=== PATIENT | female | born 1995 | race Caucasian/White ===

== ENCOUNTER 2019-06-10 12:11 | Emergency (ER) | payer OTHER ==
[2019-06-10 13:11] VITALS: RESP 18; TEMP 98.1
[2019-06-10] MEDS ORDERED: ONDANSETRON 4 MG/2 ML VIAL IVP STA (13:35)
[2019-06-10] MEDS ORDERED: SODIUM CHLORIDE 0.9% 1,000 ML IV ONE (13:35)
[2019-06-10] MEDS ORDERED: FAMOTIDINE 20 MG/2 ML VIAL IV STA (13:37)
--- NOTE | 2019-06-10 13:40 | ED ---
General Adult HPI - General Chief complaint: Nausea/Vomiting/Diarrhea Stated complaint: vomiting/prg Time Seen by Provider: 06/10/19 13:18 Source: patient, family, RN notes reviewed Mode of arrival: ambulatory Limitations: no limitations - History of Present Illness Initial comments: Patient is a pleasant 24-year-old female presenting to the emergency Department with complaints of nausea vomiting. Patient is approximately 8 weeks gravid. Patient is having nausea and vomiting multiple times per day. Symptoms have been occurring for the past 2-3 weeks. Patient states symptoms are waxing and waning. Sometimes water even makes her gag. Stools have been a little bit looser than normal. Patient is 1 para 0. Patient denies any abdominal discomfort. No pelvic discomfort or vaginal bleeding. Patient does have chronic unchanged headaches. Patient has had one or 2 episodes of syncope versus near-syncopal be associated with vomiting. - Related Data Allergies Allergy/AdvReac Type Severity Reaction Status Date / Time lemon Allergy Rash/Hives Verified 06/10/19 13:12 lemon oil Allergy Rash/Hives Verified 06/10/19 13:12 Review of Systems ROS Statement: Those systems with pertinent positive or pertinent negative responses have been documented in the HPI. ROS Other: All systems not noted in ROS Statement are negative. Constitutional: Denies: fever Eyes: Denies: eye pain ENT: Denies: ear pain Respiratory: Denies: cough, dyspnea Cardiovascular: Denies: chest pain Endocrine: Denies: fatigue Gastrointestinal: Reports: nausea, vomiting. Denies: abdominal pain Genitourinary: Denies: dysuria Musculoskeletal: Denies: back pain Skin: Denies: rash Neurological: Reports: as per HPI. Denies: weakness, paresthesias, confusion Past Medical History Past Medical History: No Reported History History of Any Multi-Drug Resistant Organisms: None Reported Past Surgical History: Adenoidectomy, Tonsillectomy Past Psychological History: No Psychological Hx Reported Smoking Status: Never smoker Past Alcohol Use History: None Reported Past Drug Use History: None Reported General Exam Limitations: no limitations General appearance: alert, in no apparent distress Head exam: Present: normocephalic Eye exam: Present: normal appearance, PERRL, EOMI. Absent: nystagmus ENT exam: Present: normal oropharynx Neck exam: Present: normal inspection Respiratory exam: Present: normal lung sounds bilaterally Cardiovascular Exam: Present: regular rate, normal rhythm GI/Abdominal exam: Present: soft. Absent: distended, tenderness, guarding, rebound Extremities exam: Present: normal inspection Neurological exam: Present: alert, oriented X3, CN II-XII intact. Absent: motor sensory deficit Expanded Speech: Present: fluid speech Cranial nerves: EOM's Intact: Normal, Facial Sensation: Normal Sensory exam: Upper Extremity Light Touch: Normal, Lower Extremity Light Touch: Normal Motor strength exam: RUE: 5, LUE: 5, RLE: 5, LLE: 5 Eye Response: (4) open spontaneously Motor Response: (6) obeys commands Verbal Response: (5) oriented Psychiatric exam: Present: normal affect, normal mood Skin exam: Present: normal color Course Vital Signs 06/10/19 13:08 Temperature 98.1 F Pulse Rate 76 Respiratory 18 Rate Blood Pressure 114/80 O2 Sat by Pulse 99 Oximetry Medical Decision Making - Medical Decision Making Patient reevaluated and resting comfortably in bed. Patient and family updated on results and need for follow-up. Patient states she is in the process of obtaining an [facility] physician. - Lab Data Result diagrams: 06/10/19 13:55 06/10/19 13:55 Lab Results 06/10/19 06/10/19 06/10/19 Range/Units 13:55 13:55 13:55 WBC 9.0 (3.8-10.6) k/uL RBC 4.66 (3.80-5.40) m/uL Hgb 14.6 (11.4-16.0) gm/dL Hct 43.3 (34.0-46.0) % MCV 92.9 (80.0-100.0) fL MCH 31.5 (25.0-35.0) pg MCHC 33.8 (31.0-37.0) g/dL RDW 12.2 (11.5-15.5) % Plt Count 252 (150-450) k/uL Neutrophils % 76 % Lymphocytes % 16 % Monocytes % 5 % Eosinophils % 1 % Basophils % 0 % Neutrophils # 6.8 (1.3-7.7) k/uL Lymphocytes # 1.4 (1.0-4.8) k/uL Monocytes # 0.5 (0-1.0) k/uL Eosinophils # 0.1 (0-0.7) k/uL Basophils # 0.0 (0-0.2) k/uL PT (9.0-12.0) sec INR (<1.2) APTT (22.0-30.0) sec Sodium 137 (137-145) mmol/L Potassium 4.2 (3.5-5.1) mmol/L Chloride 106 (98-107) mmol/L Carbon Dioxide 23 (22-30) mmol/L Anion Gap 8 mmol/L BUN 6 L (7-17) mg/dL Creatinine 0.57 (0.52-1.04) mg/dL Est GFR (CKD-EPI)AfAm >90 (>60 ml/min/1.73 sqM) Est GFR (CKD-EPI)NonAf >90 (>60 ml/min/1.73 sqM) Glucose 82 (74-99) mg/dL Calcium 9.5 (8.4-10.2) mg/dL Total Bilirubin 0.8 (0.2-1.3) mg/dL AST 20 (14-36) U/L ALT 13 (4-34) U/L Alkaline Phosphatase 61 (38-126) U/L Total Protein 6.7 (6.3-8.2) g/dL Albumin 4.0 (3.5-5.0) g/dL Blood Type O Positive Blood Type Recheck No Previous Record Bld Type Recheck Status [facility] ONLY 06/10/19 Range/Units 13:55 WBC (3.8-10.6) k/uL RBC (3.80-5.40) m/uL Hgb (11.4-16.0) gm/dL Hct (34.0-46.0) % MCV (80.0-100.0) fL MCH (25.0-35.0) pg MCHC (31.0-37.0) g/dL RDW (11.5-15.5) % Plt Count (150-450) k/uL Neutrophils % % Lymphocytes % % Monocytes % % Eosinophils % % Basophils % % Neutrophils # (1.3-7.7) k/uL Lymphocytes # (1.0-4.8) k/uL Monocytes # (0-1.0) k/uL Eosinophils # (0-0.7) k/uL Basophils # (0-0.2) k/uL PT 10.5 (9.0-12.0) sec INR 1.0 (<1.2) APTT 27.0 (22.0-30.0) sec Sodium (137-145) mmol/L Potassium (3.5-5.1) mmol/L Chloride (98-107) mmol/L Carbon Dioxide (22-30) mmol/L Anion Gap mmol/L BUN (7-17) mg/dL Creatinine (0.52-1.04) mg/dL Est GFR (CKD-EPI)AfAm (>60 ml/min/1.73 sqM) Est GFR (CKD-EPI)NonAf (>60 ml/min/1.73 sqM) Glucose (74-99) mg/dL Calcium (8.4-10.2) mg/dL Total Bilirubin (0.2-1.3) mg/dL AST (14-36) U/L ALT (4-34) U/L Alkaline Phosphatase (38-126) U/L Total Protein (6.3-8.2) g/dL Albumin (3.5-5.0) g/dL Blood Type Blood Type Recheck Bld Type Recheck Status - Radiology Data Radiology results: report reviewed (Pelvic ultrasound shows single live IUP with a heart rate of 128. No abnormality seen.) Disposition Clinical Impression: Hyperemesis gravidarum Disposition: HOME SELF-CARE Condition: Stable Instructions (If sedation given, give patient instructions): Hyperemesis Gravidarum (ED) Additional Instructions: Please follow-up with primary care physician as well as [facility] in the next couple days for recheck. Please take vitamins with folate acid. Return for uncontrolled vomiting, not tolerating fluids, pelvic pain, vaginal bleeding, worsening symptoms or other concerns. Is patient prescribed a controlled substance at d/c from ED?: No Referrals: Alon Oakes MD [Primary Care Provider] - 1-2 days Colby Loomis MD [STAFF PHYSICIAN] - 1-2 days Time of Disposition: 15:03
[2019-06-10 14:05] LABS: Basophils % (A) 0 %; Eosinophils # (A) 0.1 k/uL (0-0.7); Eosinophils % (A) 1 %; HCT 43.3 % (34.0-46.0); HGB 14.6 gm/dL (11.4-16.0); Lymphocytes # (A) 1.4 k/uL (1.0-4.8); Lymphocytes % (A) 16 %; MCH 31.5 pg (25.0-35.0); MCHC 33.8 g/dL (31.0-37.0); MCV 92.9 fL (80.0-100.0); Mean Platelet Volume 6.8; Monocytes # (A) 0.5 k/uL (0-1.0); Monocytes % (A) 5 %; Neutrophils # (A) 6.8 k/uL (1.3-7.7); Neutrophils % (A) 76 %; Platelet Count 252 k/uL (150-450); RBC 4.66 m/uL (3.80-5.40); RDW 12.2 % (11.5-15.5)
[2019-06-10 14:16] LABS: Prothrombin Time 10.5 sec (9.0-12.0)
[2019-06-10 14:17] LABS: ALT 13 U/L (4-34); AST 20 U/L (14-36); African American GFR (CKD) >90 (>60 ml/min/1.73 sqM); Alkaline Phosphatase 61 U/L (38-126); Anion Gap 8 mmol/L; Blood Urea Nitrogen 6 mg/dL (7-17); Calcium 9.5 mg/dL (8.4-10.2); Carbon Dioxide 23 mmol/L (22-30); Chloride 106 mmol/L (98-107); Glucose 82 mg/dL (74-99); Non-African American GFR(CKD) >90 (>60 ml/min/1.73 sqM); Potassium 4.2 mmol/L (3.5-5.1); Sodium 137 mmol/L (137-145); Total Bilirubin 0.8 mg/dL (0.2-1.3); Total Protein 6.7 g/dL (6.3-8.2)
--- NOTE | 2019-06-10 14:42 | US ---
EXAMINATION TYPE: Ultrasound OB <= 14 week fetus DATE OF EXAM: 06/10/2019 2:22 PM COMPARISON: NONE CLINICAL HISTORY: 24-year-old female pain. Pt states vomiting EXAM PERFORMED: Transabdominal (TA) FINDINGS: EXAM MEASUREMENTS: GESTATIONAL AGE / DATING Physician Established: Not yet established Dates by LMP: (7 weeks/4 days) EDC: 01/23/2020 Dates by First Scan: No prior Dates by Current Scan for: (7 weeks/0 days +/- 4 days) EDC: 01/27/2020 MATERNAL ANATOMY Uterus: 8.5 x 4.8 x 6.6 cm Right Ovary: 3.5 x 2.0 x 3.1 cm Left Ovary: 2.5 x 1.4 x 2.5 cm Post CDS / Adnexa: wnl Presence of free fluid: No Presence of corpus luteal cyst: Right Ovary=1.7 x 2.2 x 1.9 cm Presence of subchorionic bleed: No GESTATION / SURVEY CRL: 1.0 cm (7 weeks/0 days) MSD: wnl Yolk Sac (normal less than 6mm): 2mm Heart Rate: 128 bpm Rhythm: Normal IUP: Viable IUP MEDICAL SUPPLY TECHNICIAN NOTES: Single, viable IUP/ No abnormality visualized at this time IMPRESSION: 1. Single live intrauterine with estimated gestational age of 7 weeks 4 days by LMP. Curren t ultrasound biometry is smaller and just barely concordant (7 weeks 0 days). 2. Complete survey recommended at 18-20 weeks.
[2019-06-10 15:15] VITALS: BP 137/82; PULSE 72
== END 2019-06-10 15:15 | disposition home or self-care (01) ==
LOC: EC 12:11
DX: O21.0 Mild hyperemesis gravidarum (principal); O99.89 Other specified diseases and conditions complicating pregnancy, childbirth and the puerperium; R51 Headache; R55 Syncope and collapse; Z91.018 Allergy to other foods; Z3A.01 Less than 8 weeks gestation of pregnancy
CPT/HCPCS: 99284; 96374; 96375; 96361; 36415; 86900; 86901; 80053; 85025; 85610; 85730; 84702; 76801; J2405

== ENCOUNTER 2019-06-16 03:57 | Emergency (ER) | payer OTHER ==
[2019-06-16 04:05] VITALS: BP 130/84; PULSE 106; RESP 20; TEMP 98.2
[2019-06-16] MEDS ORDERED: ONDANSETRON 4 MG/2 ML VIAL IVP STA (04:30)
[2019-06-16] MEDS ORDERED: SODIUM CHLORIDE 0.9% 1,000 ML IV STA (04:30)
[2019-06-16] MEDS ORDERED: DEXTROSE 5%-0.45% NACL 1,000 ML IV ONE (04:31)
[2019-06-16 04:57] LABS: Basophils # (A) 0.1 k/uL (0-0.2); Basophils % (A) 1 %; Eosinophils # (A) 0.1 k/uL (0-0.7); Eosinophils % (A) 1 %; HCT 42.8 % (34.0-46.0); Lymphocytes # (A) 1.6 k/uL (1.0-4.8); Lymphocytes % (A) 16 %; MCH 32.2 pg (25.0-35.0); MCHC 35.1 g/dL (31.0-37.0); MCV 91.9 fL (80.0-100.0); Mean Platelet Volume 6.9; Monocytes # (A) 0.7 k/uL (0-1.0); Monocytes % (A) 7 %; Neutrophils # (A) 7.6 k/uL (1.3-7.7); Neutrophils % (A) 75 %; Platelet Count 269 k/uL (150-450); RBC 4.65 m/uL (3.80-5.40); RDW 12.2 % (11.5-15.5); WBC 10.2 k/uL (3.8-10.6)
[2019-06-16 05:05] LABS: ALT 13 U/L (4-34); AST 19 U/L (14-36); African American GFR (CKD) >90 (>60 ml/min/1.73 sqM); Albumin 4.3 g/dL (3.5-5.0); Alkaline Phosphatase 69 U/L (38-126); Anion Gap 12 mmol/L; Blood Urea Nitrogen 7 mg/dL (7-17); Calcium 9.4 mg/dL (8.4-10.2); Carbon Dioxide 21 mmol/L (22-30); Chloride 104 mmol/L (98-107); Glucose 91 mg/dL (74-99); Non-African American GFR(CKD) >90 (>60 ml/min/1.73 sqM); Potassium 3.5 mmol/L (3.5-5.1); Sodium 137 mmol/L (137-145); Total Bilirubin 0.9 mg/dL (0.2-1.3)
--- NOTE | 2019-06-16 05:12 | ED ---
Nausea/Vomiting/Diarrhea HPI - General Chief complaint: Nausea/Vomiting/Diarrhea Stated complaint: Vomiting, 8 weeks Preg Time Seen by Provider: 06/16/19 04:21 Source: patient Mode of arrival: ambulatory Limitations: no limitations - History of Present Illness Initial comments: Patient is a female currently in weeks with a single intrauterine confirmed on ultrasound. Patient has been suffering with hyperemesis for the duration of this . Patient reports she's lost 20 pounds in the past 8 weeks. Patient was previously prescribed Zofran, she felt the Zofran helped somewhat however she ran out of the prescription in her OB prescribe her Reglan which she feels is not helping at all. Patient presents to the ER this morning for evaluation of persistent nausea and vomiting. Patient denies any abdominal pain and vaginal bleeding. Patient reports she is concerned she is dehydrated. - Related Data Allergies Allergy/AdvReac Type Severity Reaction Status Date / Time lemon Allergy Rash/Hives Verified 06/16/19 04:05 lemon oil Allergy Rash/Hives Verified 06/16/19 04:05 Review of Systems ROS Statement: Those systems with pertinent positive or pertinent negative responses have been documented in the HPI. ROS Other: All systems not noted in ROS Statement are negative. Past Medical History Past Medical History: No Reported History History of Any Multi-Drug Resistant Organisms: None Reported Past Surgical History: Adenoidectomy, Tonsillectomy Past Psychological History: No Psychological Hx Reported Smoking Status: Never smoker Past Alcohol Use History: None Reported Past Drug Use History: None Reported General Exam - General Exam Comments Initial Comments: Physical Exam GENERAL: Patient is well-developed and well-nourished. Patient is nontoxic and well-hydrated and is in no distress. HENT: Normocephalic, Atraumatic. EYES: PERRL, EOMI PULMONARY: Unlabored respirations. CARDIOVASCULAR: RRR Warm and well perfused extremities ABDOMEN: Non-distended SKIN: No rashes or bruising : Deferred NEUROLOGIC: Alert and oriented Normal speech Normal gait MUSCULOSKELETAL: Moving all extremities with no apparent injury PSYCHIATRIC: No SI/HI Limitations: no limitations Course Vital Signs 06/16/19 04:02 Temperature 98.2 F Pulse Rate 106 H Respiratory 20 Rate Blood Pressure 130/84 O2 Sat by Pulse 96 Oximetry Medical Decision Making - Medical Decision Making She was seen and evaluated history was obtained from patient and mom at bedside. This is a pleasant 24-year-old female currently 9 weeks gestation experiencing hyperemesis. Labs, normal saline for IV resuscitation and D5 half-normal for treatment of likely starvation stenosis was ordered and given. Patient arely ating ice chips. Labs with no significant abnormalities. This time patient will be given a Zofran starter pack discharged home and advised to follow-up with her cupola melter for further management of hyperemesis. On reevaluation patient is feeling much better since she is no longer nauseated neck she feels quite hungry and is ready for discharge. - Lab Data Result diagrams: 06/16/19 04:49 06/16/19 04:49 Lab Results 06/16/19 06/16/19 Range/Units 04:49 04:49 WBC 10.2 (3.8-10.6) k/uL RBC 4.65 (3.80-5.40) m/uL Hgb 15.0 (11.4-16.0) gm/dL Hct 42.8 (34.0-46.0) % MCV 91.9 (80.0-100.0) fL MCH 32.2 (25.0-35.0) pg MCHC 35.1 (31.0-37.0) g/dL RDW 12.2 (11.5-15.5) % Plt Count 269 (150-450) k/uL Neutrophils % 75 % Lymphocytes % 16 % Monocytes % 7 % Eosinophils % 1 % Basophils % 1 % Neutrophils # 7.6 (1.3-7.7) k/uL Lymphocytes # 1.6 (1.0-4.8) k/uL Monocytes # 0.7 (0-1.0) k/uL Eosinophils # 0.1 (0-0.7) k/uL Basophils # 0.1 (0-0.2) k/uL Sodium 137 (137-145) mmol/L Potassium 3.5 (3.5-5.1) mmol/L Chloride 104 (98-107) mmol/L Carbon Dioxide 21 L (22-30) mmol/L Anion Gap 12 mmol/L BUN 7 (7-17) mg/dL Creatinine 0.51 L (0.52-1.04) mg/dL Est GFR (CKD-EPI)AfAm >90 (>60 ml/min/1.73 sqM) Est GFR (CKD-EPI)NonAf >90 (>60 ml/min/1.73 sqM) Glucose 91 (74-99) mg/dL Calcium 9.4 (8.4-10.2) mg/dL Total Bilirubin 0.9 (0.2-1.3) mg/dL AST 19 (14-36) U/L ALT 13 (4-34) U/L Alkaline Phosphatase 69 (38-126) U/L Total Protein 7.0 (6.3-8.2) g/dL Albumin 4.3 (3.5-5.0) g/dL Disposition Clinical Impression: Hyperemesis gravidarum Disposition: HOME SELF-CARE Condition: Stable Instructions (If sedation given, give patient instructions): Hyperemesis Gravidarum (ED) Is patient prescribed a controlled substance at d/c from ED?: No Referrals: None,Stated [REFERRING] - 1-2 days
[2019-06-16] MEDS ORDERED: ONDANSETRON 4 MG ODT STARTER PACK 2 TAB BTL PO STA (05:28)
== END 2019-06-16 06:30 | disposition home or self-care (01) ==
LOC: EC 03:57
DX: O21.0 Mild hyperemesis gravidarum (principal); Z91.018 Allergy to other foods; Z3A.09 9 weeks gestation of pregnancy
CPT/HCPCS: 36415; 80053; 85025; 99284; 96374; 96361; J2405; S0119

== ENCOUNTER 2019-07-24 12:34 | Emergency (ER) | payer OTHER ==
[2019-07-24 12:39] VITALS: TEMP 98
[2019-07-24] MEDS ORDERED: SODIUM CHLORIDE 0.9% 500 ML 500 ML IV ONE (12:40)
[2019-07-24] MEDS ORDERED: SODIUM CHLORIDE 0.9% 1,000 ML IV ONE (12:40)
[2019-07-24] MEDS ORDERED: PYRIDOXINE 100 MG/ML 1 ML VIAL IVP STA (12:41)
[2019-07-24] MEDS ORDERED: METOCLOPRAMIDE 5 MG/ML 2 ML VIAL IVP STA (12:42)
[2019-07-24] MEDS ORDERED: SODIUM CHLORIDE 0.9% 1,000 ML IV SCH (12:45)
[2019-07-24] MEDS ORDERED: ONDANSETRON 4 MG/2 ML VIAL IVP STA (12:46)
[2019-07-24 14:04] LABS: Amorphous Sediment,Urine Few /hpf; Bacteria,Urine Moderate /hpf; Mucus,Urine Moderate /hpf; Squamous Epithelial Cell,Urine 1 /hpf (0-4)
[2019-07-24 14:07] LABS: Appearance,Urine Cloudy (Clear); Bilirubin,Urine Negative (Negative); Blood,Urine Negative (Negative); Color,Urine Yellow; Glucose,Urine (UA) Negative (Negative); Ketones,Urine 2+ (Negative); Leukocyte Esterase,Urine Negative (Negative); Nitrite,Urine Negative (Negative); Protein,Urine 1+ (Negative); Specific Gravity,Urine 1.005 (1.001-1.035); Urobilinogen,Urine <2.0 mg/dL (<2.0)
[2019-07-24 14:11] LABS: ALT 18 U/L (4-34); AST 43 U/L (14-36); African American GFR (CKD) >90 (>60 ml/min/1.73 sqM); Alkaline Phosphatase 60 U/L (38-126); Anion Gap 8 mmol/L; Blood Urea Nitrogen 4 mg/dL (7-17); Calcium 9.1 mg/dL (8.4-10.2); Carbon Dioxide 19 mmol/L (22-30); Chloride 107 mmol/L (98-107); Glucose 82 mg/dL (74-99); Non-African American GFR(CKD) >90 (>60 ml/min/1.73 sqM); Sodium 134 mmol/L (137-145); Total Bilirubin 1.3 mg/dL (0.2-1.3)
[2019-07-24 14:12] VITALS: RESP 18
[2019-07-24 14:13] LABS: Basophils # (A) 0.1 k/uL (0-0.2); Basophils % (A) 1 %; Eosinophils # (A) 0.1 k/uL (0-0.7); Eosinophils % (A) 1 %; HCT 41.6 % (34.0-46.0); HGB 14.4 gm/dL (11.4-16.0); Lymphocytes # (A) 1.3 k/uL (1.0-4.8); Lymphocytes % (A) 13 %; MCH 31.8 pg (25.0-35.0); MCHC 34.5 g/dL (31.0-37.0); MCV 92.4 fL (80.0-100.0); Mean Platelet Volume 8.3; Monocytes # (A) 0.5 k/uL (0-1.0); Monocytes % (A) 5 %; Neutrophils # (A) 8.3 k/uL (1.3-7.7); Neutrophils % (A) 80 %; Platelet Count 218 k/uL (150-450); RBC 4.51 m/uL (3.80-5.40); RDW 12.6 % (11.5-15.5); WBC 10.4 k/uL (3.8-10.6)
--- NOTE | 2019-07-24 14:17 | US ---
EXAMINATION TYPE: Ultrasound OB <= 14 week fetus DATE OF EXAM: 07/24/2019 1:58 PM COMPARISON: 06/18/2019 CLINICAL HISTORY: 24-year-old female 14wk, unable to get heart tones. EXAM PERFORMED: Transabdominal (TA) FINDINGS: EXAM MEASUREMENTS: GESTATIONAL AGE / DATING Physician Established: (13 weeks/5 days) EDC: 01/24/2020 Dates by LMP: (13 weeks/6 days) EDC: 01/24/2020 Dates by First Scan: (13 weeks/3 days) EDC: 01/27/2020 Dates by Current Scan for: (14 weeks/0 days) EDC: 01/23/2020 MATERNAL ANATOMY Uterus: 14.5 x 10.3 x 8.2 cm Right Ovary: 4.2 x 3.5 x 1.9 cm Left Ovary: 3.6 x 2.0 x 1.4 cm Post CDS / Adnexa: wnl Presence of free fluid: No Presence of corpus luteal cyst: No Presence of subchorionic bleed: No GESTATION / SURVEY BPD: 2.3 (13 weeks/6 days) AC: 7.1 (13 weeks/5 days) FL: 1.3 (14 weeks/0 days) Heart Rate: 191 bpm Rhythm: Normal IUP: Viable IUP Date of LMP: 04/18/2019 Beta HcG (if available): None available IMPRESSION: 1. tachycardia of 191 BPM. Follow-up as clinically indicated. 2. Single live intrauterine with established gestational age of 13 weeks 5 days. Current ul trasound biometry is slightly larger but concordant (14 weeks 0 days). 3. Complete survey recommended at 18-20 weeks.
--- NOTE | 2019-07-24 14:54 | ED ---
Nausea/Vomiting/Diarrhea HPI - General Chief complaint: Nausea/Vomiting/Diarrhea Stated complaint: 14 wks preg/vomiting Time Seen by Provider: 07/24/19 12:38 Source: patient Mode of arrival: ambulatory Limitations: no limitations - History of Present Illness Initial comments: 24-year-old female presenting today for chief complaint of vomiting and pregnan cy x1 day. Patient states she has history of hyperemesis she is taking Zofran at home. Patient states she has one more tablet. Patient states that recently her vomiting is the better however the past 24 hours she has had persistent vomiting and nausea. She states she had one episode diarrhea today. Patient denies any abdominal pain or vaginal bleeding. Patient denies fevers. Patient denies any chest pain shortness of breath or leg swelling. Remaining review of system negative patient was concerned she was getting dehydrated and presented to the ER for further evaluation upon arrival patient's heart rate and BP elevated, appear in no acute distress - Related Data Home Medications Medication Instructions Recorded Confirmed Ondansetron [Zofran ODT] 4 mg PO Q8HR PRN 06/17/19 07/24/19 Cholecalciferol [Vitamin D3 (25 2,000 unit PO DAILY@1200 07/24/19 07/24/19 Mcg = 1000 Iu)] Pedi Multivit No.25/Folic Acid 2 tab PO DAILY@1200 07/24/19 07/24/19 [Flintstones Multivit Chew Tab] Previous Rx's Medication Instructions Recorded Ondansetron Odt [Zofran Odt] 4 mg PO Q8HR PRN 7 Days #21 tab 07/24/19 Allergies Allergy/AdvReac Type Severity Reaction Status Date / Time lemon Allergy Rash/Hives Verified 07/24/19 15:19 lemon oil Allergy Rash/Hives Verified 07/24/19 15:19 Review of Systems ROS Statement: Those systems with pertinent positive or pertinent negative responses have been documented in the HPI. ROS Other: All systems not noted in ROS Statement are negative. Past Medical History Past Medical History: No Reported History Additional Past Medical History / Comment(s): ovarian cysts. mononucleosis History of Any Multi-Drug Resistant Organisms: None Reported Past Surgical History: Adenoidectomy, Tonsillectomy Past Anesthesia/Blood Transfusion Reactions: No Reported Reaction Past Psychological History: No Psychological Hx Reported Smoking Status: Never smoker Past Alcohol Use History: None Reported Past Drug Use History: None Reported - Past Family History Mother Additional Family Medical History / Comment(s): bipolar, depressed Father History Unknown: Yes General Exam - General Exam Comments Initial Comments: General: The patient is awake and alert, in no distress Eye: +3 mm pupils are equal, round and reactive to light, extra-ocular movements are intact. No nystagmus. There is normal conjunctiva bilaterally. No signs of icterus. Ears, nose, mouth and throat: There are slightly dry mucous membranes and no oral lesions. Neck: The neck is supple, there is no tenderness or JVD. Cardiovascular: There is a regular rate and rhythm. No murmur, rub or gallop is appreciated. Respiratory: Lungs are clear to auscultation, respirations are non-labored, breath sounds are equal. No wheezes, stridor, rales, or rhonchi. Gastrointestinal: Soft, non-distended, non-tender abdomen without masses or organomegaly noted. There is no rebound or guarding present. Musculoskeletal: Normal ROM, no tenderness. Strength 5/5. Sensation intact. Radial pulses equal bilaterally 2+. Neurological: A&O x 3. CN II-XII intact grossly, There are no obvious motor or sensory deficits. Coordination appears grossly intact. Speech is normal. Skin: Skin is warm and dry and no rashes or lesions are noted. Psychiatric: Cooperative, appropriate mood & affect, normal judgment. Limitations: no limitations Course Vital Signs 07/24/19 07/24/19 07/24/19 12:36 14:11 15:51 Temperature 98.0 F Pulse Rate 117 H 84 90 Respiratory 16 18 18 Rate Blood Pressure 147/107 125/77 126/82 O2 Sat by Pulse 99 98 98 Oximetry Medical Decision Making - Medical Decision Making 24yo female presenting for vomiting x 1 day, history of hyperemesis that had seemed to be improving. Patient was given vitamin B6 Zofran in the emergency department. As well as Reglan. Patient is given IV fluids. +2 ketones in urine. Patient has improvement of symptoms on reevaluation contacted on-call CREDIT OPERATIONS SPECIALIST after multiple attempts at contacting patient's CREDIT OPERATIONS SPECIALIST without success. Dr. Souza states that at this time he feels the tachycardia could be thyroid outpatient and patient is to return for any worsening symptoms. Patient is agreeable to this care plan discharge at this time I recommend or call her CREDIT OPERATIONS SPECIALIST tomorrow in order to discuss appropriate follow-up and future care plan. She discharged appearing well/ Dr Crockett is agreeable to care plan and dischrge after reviewing chart. - Lab Data Result diagrams: 07/24/19 13:00 07/24/19 13:00 Lab Results 07/24/19 07/24/19 07/24/19 Range/Units 13:00 13:00 13:00 WBC 10.4 (3.8-10.6) k/uL RBC 4.51 (3.80-5.40) m/uL Hgb 14.4 (11.4-16.0) gm/dL Hct 41.6 (34.0-46.0) % MCV 92.4 (80.0-100.0) fL MCH 31.8 (25.0-35.0) pg MCHC 34.5 (31.0-37.0) g/dL RDW 12.6 (11.5-15.5) % Plt Count 218 (150-450) k/uL Neutrophils % 80 % Lymphocytes % 13 % Monocytes % 5 % Eosinophils % 1 % Basophils % 1 % Neutrophils # 8.3 H (1.3-7.7) k/uL Lymphocytes # 1.3 (1.0-4.8) k/uL Monocytes # 0.5 (0-1.0) k/uL Eosinophils # 0.1 (0-0.7) k/uL Basophils # 0.1 (0-0.2) k/uL Sodium 134 L (137-145) mmol/L Potassium 5.0 (3.5-5.1) mmol/L Chloride 107 (98-107) mmol/L Carbon Dioxide 19 L (22-30) mmol/L Anion Gap 8 mmol/L BUN 4 L (7-17) mg/dL Creatinine 0.45 L (0.52-1.04) mg/dL Est GFR (CKD-EPI)AfAm >90 (>60 ml/min/1.73 sqM) Est GFR (CKD-EPI)NonAf >90 (>60 ml/min/1.73 sqM) Glucose 82 (74-99) mg/dL Calcium 9.1 (8.4-10.2) mg/dL Total Bilirubin 1.3 (0.2-1.3) mg/dL AST 43 H (14-36) U/L ALT 18 (4-34) U/L Alkaline Phosphatase 60 (38-126) U/L Total Protein 7.0 (6.3-8.2) g/dL Albumin 4.0 (3.5-5.0) g/dL Urine Color Yellow Urine Appearance Cloudy H (Clear) Urine pH 8.0 (5.0-8.0) Ur Specific [place] 1.005 (1.001-1.035) Urine Protein 1+ H (Negative) Urine Glucose (UA) Negative (Negative) Urine Ketones 2+ H (Negative) Urine Blood Negative (Negative) Urine Nitrite Negative (Negative) Urine Bilirubin Negative (Negative) Urine Urobilinogen <2.0 (<2.0) mg/dL Ur Leukocyte Esterase Negative (Negative) Ur Squamous Epith Cells 1 (0-4) /hpf Amorphous Sediment Few H (None) /hpf Urine Bacteria Moderate H (None) /hpf Urine Mucus Moderate H (None) /hpf Disposition Clinical Impression: Dehydration, Vomiting, tachycardia Disposition: HOME SELF-CARE Condition: Good Instructions (If sedation given, give patient instructions): Acute Nausea and Vomiting (ED) Additional Instructions: Please use medication as discussed. Please follow-up with OBGYN in next week. Please return to emergency room if the symptoms increase or worsen or for any other concerns. Prescriptions: Ondansetron Odt [Zofran Odt] 4 mg PO Q8HR PRN 7 Days #21 tab PRN Reason: Nausea Is patient prescribed a controlled substance at d/c from ED?: No Referrals: Gianni Christensen Jr, [Primary Care Provider] - 1-2 days Time of Disposition: 16:17
[2019-07-24 15:53] VITALS: BP 126/82; PULSE 90
[2019-07-24] MEDS ORDERED: ONDANSETRON 4 MG ODT STARTER PACK 2 TAB BTL PO STA (16:25)
== END 2019-07-24 16:37 | disposition home or self-care (01) ==
LOC: EC 12:34
DX: O21.9 Vomiting of pregnancy, unspecified (principal); O99.282 Endocrine, nutritional and metabolic diseases complicating pregnancy, second trimester; E86.0 Dehydration; O36.831 Maternal care for abnormalities of the fetal heart rate or rhythm, first trimester; Z3A.14 14 weeks gestation of pregnancy; Z91.018 Allergy to other foods
CPT/HCPCS: 36415; 80053; 85025; 81001; 76801; 99284; 96374; 96375; 96361 ×3; J3415; J2405; S0119

== ENCOUNTER 2021-09-22 18:19 | Emergency (ER) | payer BC, OTHER ==
[2021-09-22 19:03] VITALS: BP 110/75; PULSE 70; RESP 16; TEMP 98
[2021-09-22] MEDS ORDERED: IBUPROFEN 400 MG TAB PO STA (22:15)
--- NOTE | 2021-09-22 22:25 | ED ---
Fall HPI - General Chief Complaint: Fall Stated Complaint: Fall Time Seen by Provider: 09/22/21 21:59 Source: patient Mode of arrival: ambulatory - History of Present Illness Initial Comments: This patient is a 26-year-old woman who presents with complaint of mid back and right chest pain. Patient states that this was a result of a fall. She was running out of her house to get to work. She slipped on the snow landing on her back and going down 4 steps. She indicates the thoracic back around the right chest along the lower ribs. The patient denies any head, neck or abdominal pain. She did not have loss consciousness. She was able to subsequently ambulate. Patient denies any change in bladder or bowel function. No weakness or numbness to the extremities. MD Complaint: fall Onset/Timin -: hour(s) Fall From: down stairs (#) When Fall Occurred: just prior to arrival Place Fall Occurred: home Loss of Consciousness: none Prolonged Down Time?: no Location: chest, back Severity: moderate Quality: aching Context: tripped/slipped Associated Symptoms: chest paint - Related Data Home Medications Medication Instructions Recorded Confirmed Dextroamphetamine/Amphetamine 20 mg PO DAILY 09/22/21 09/22/21 [Adderall Xr] Previous Rx's Medication Instructions Recorded Acetaminophen-Codeine 300-30mg 1 tab PO Q4H PRN #18 tablet 09/22/21 [Tylenol w/codeine #3] Ibuprofen 800 mg PO TID #20 tablet 09/22/21 Allergies Allergy/AdvReac Type Severity Reaction Status Date / Time lemon Allergy Rash/Hives Verified 09/22/21 22:57 lemon oil Allergy Rash/Hives Verified 09/22/21 22:57 Review of Systems ROS Statement: Those systems with pertinent positive or pertinent negative responses have been documented in the HPI. ROS Other: All systems not noted in ROS Statement are negative. Constitutional: Denies: weakness Eyes: Denies: vision change Respiratory: Denies: cough, dyspnea Cardiovascular: Denies: chest pain, palpitations Gastrointestinal: Denies: abdominal pain, nausea, vomiting Genitourinary: Denies: hematuria Musculoskeletal: Reports: as per HPI, back pain Skin: Denies: lesions Neurological: Denies: headache, weakness, numbness Past Medical History Past Medical History: No Reported History Additional Past Medical History / Comment(s): ovarian cysts. mononucleosis History of Any Multi-Drug Resistant Organisms: None Reported Past Surgical History: Adenoidectomy, Tonsillectomy Past Anesthesia/Blood Transfusion Reactions: No Reported Reaction Past Psychological History: No Psychological Hx Reported Smoking Status: Never smoker Past Alcohol Use History: None Reported Past Drug Use History: None Reported - Past Family History Mother Additional Family Medical History / Comment(s): bipolar, depressed Father History Unknown: Yes General Exam Limitations: no limitations General appearance: alert, in no apparent distress Head exam: Present: atraumatic, normocephalic Eye exam: Present: normal appearance. Absent: scleral icterus, conjunctival injection Neck exam: Present: normal inspection, full ROM. Absent: tenderness Respiratory exam: Present: normal lung sounds bilaterally, chest wall tenderness (Right lateral ribs). Absent: respiratory distress, wheezes, rales, rhonchi, stridor Cardiovascular Exam: Present: regular rate, normal rhythm, normal heart sounds. Absent: systolic murmur, diastolic murmur, rubs, gallop GI/Abdominal exam: Present: soft. Absent: distended, tenderness, guarding, rebound, rigid, mass Extremities exam: Present: normal inspection, full ROM, normal capillary refill. Absent: tenderness Back exam: Present: paraspinal tenderness, vertebral tenderness. Absent: CVA tenderness (R), CVA tenderness (L) Neurological exam: Present: alert. Absent: motor sensory deficit Skin exam: Present: warm, dry, intact, normal color. Absent: rash Course Vital Signs 09/22/21 19:00 Temperature 98 F Pulse Rate 70 Respiratory 16 Rate Blood Pressure 110/75 O2 Sat by Pulse 97 Oximetry Disposition Clinical Impression: Fall Disposition: HOME SELF-CARE Condition: Good Instructions (If sedation given, give patient instructions): Low Back Strain (ED), Contusion in Adults (ED) Prescriptions: Ibuprofen 800 mg PO TID #20 tablet Acetaminophen-Codeine 300-30mg [Tylenol w/codeine #3] 1 tab PO Q4H PRN #18 tablet PRN Reason: Pain Is patient prescribed a controlled substance at d/c from ED?: Yes When asked, does pt state using other controlled substances?: No If prescribed controlled substance>3 days was MAPS reviewed?: Prescribed <3 Days If opioid is for acute pain is fill amount 7 days or less?: Yes If Rx opioid, was Start Talking consent form obtained?: Yes Referrals: Alon Oakes MD [Primary Care Provider] - 1-2 days
--- NOTE | 2021-09-22 22:44 | XR ---
EXAMINATION TYPE: XR ribs RT w pa chest xray DATE OF EXAM: 09/22/2021 COMPARISON: NONE HISTORY: Rib pain TECHNIQUE: 5 views FINDINGS: Heart and mediastinum are normal. Lungs are clear. There is no evidence of pleural effusion or pneumothorax. The right ribs appear intact. IMPRESSION: Normal chest. Normal right ribs.
--- NOTE | 2021-09-22 22:50 | XR ---
EXAMINATION TYPE: XR thoracic spine complete DATE OF EXAM: 09/22/2021 COMPARISON: NONE HISTORY: Fall TECHNIQUE: 3 views FINDINGS: Thoracic vertebra have normal alignment. Posterior elbows are intact. There is no paraspina l mass. No compression fracture. IMPRESSION: Negative thoracic spine exam. No fracture.
--- NOTE | 2021-09-22 22:56 | XR ---
EXAMINATION TYPE: XR pelvis AP view DATE OF EXAM: 09/22/2021 COMPARISON: NONE HISTORY: Fall. Hip pain TECHNIQUE: Single view FINDINGS: The pelvic ring is intact. Proximal femurs and hip joints are intact. No evidence of hip dy splasia. Sacroiliac joints are intact. IMPRESSION: Negative pelvis x-ray exam.
== END 2021-09-22 23:41 | disposition home or self-care (01) ==
LOC: EC 18:19
DX: R07.89 Other chest pain (principal); M54.6 Pain in thoracic spine; W00.0XXA Fall on same level due to ice and snow, initial encounter; Y93.02 Activity, running; Y92.009 Unspecified place in unspecified non-institutional (private) residence as the place of occurrence of the external cause
CPT/HCPCS: 72072; 72170; 99284

== ENCOUNTER 2022-08-28 16:35 | Emergency (ER) | payer BC, OTHER ==
[2022-08-28 16:39] VITALS: TEMP 97.7
[2022-08-28] MEDS ORDERED: diphenhydrAMINE 50 MG/ML 1 ML VIAL IVP STA (16:44)
[2022-08-28] MEDS ORDERED: SODIUM CHLORIDE 0.9% 2,000 ML IV STA (16:44)
[2022-08-28] MEDS ORDERED: PYRIDOXINE 100 MG/ML 1 ML VIAL IVP STA (16:45)
--- NOTE | 2022-08-28 17:01 | ED ---
Nausea/Vomiting/Diarrhea HPI - General Chief complaint: Nausea/Vomiting/Diarrhea Stated complaint: 10wks preg, vomiting Time Seen by Provider: 08/28/22 16:41 Source: patient Mode of arrival: ambulatory Limitations: no limitations - History of Present Illness Initial comments: Patient is a A0 female 10 weeks [facility]. Patient has history of hyperemesis gravidarum. She has been vomiting early with worsening over the past 2 days. She is prescribed Zofran however she vomited right after taking it today. She denies fever, chills, abdominal pain, diarrhea, burning with urination, vaginal bleeding. Patient had a normal ultrasound last week. Her OB is Dr. Kandi CRAFT complaint: nausea - Related Data Home Medications Medication Instructions Recorded Confirmed Docusate [Colace] 100 mg PO DAILY 08/28/22 08/28/22 Famotidine [Pepcid] 20 mg PO DAILY 08/28/22 08/28/22 Ondansetron [Zofran] 4 mg PO QID PRN 08/28/22 08/28/22 [id number] Acid 1 cap PO DAILY 08/28/22 08/28/22 [-U Capsule (formulary)] Previous Rx's Medication Instructions Recorded Cephalexin [Keflex] 250 mg PO Q6HR #20 cap 08/28/22 Doxylamine Succinate/Vit B6 1 tab PO DAILY PRN #16 tab 08/28/22 [Lina Samuel 10-10 mg Tablet] Allergies Allergy/AdvReac Type Severity Reaction Status Date / Time lemon Allergy Rash/Hives Verified 08/28/22 18:44 lemon oil Allergy Rash/Hives Verified 08/28/22 18:44 metoclopramide [From Reglan] Allergy Rash/Hives Verified 08/28/22 18:44 Review of Systems ROS Statement: Those systems with pertinent positive or pertinent negative responses have been documented in the HPI. ROS Other: All systems not noted in ROS Statement are negative. Past Medical History Past Medical History: No Reported History Additional Past Medical History / Comment(s): ovarian cysts. mononucleosis, hyperemesis History of Any Multi-Drug Resistant Organisms: None Reported Past Surgical History: Adenoidectomy, Section, Tonsillectomy Past Anesthesia/Blood Transfusion Reactions: No Reported Reaction Past Psychological History: No Psychological Hx Reported Smoking Status: Never smoker Past Alcohol Use History: None Reported Past Drug Use History: None Reported - Past Family History Mother Additional Family Medical History / Comment(s): bipolar, depressed Father History Unknown: Yes General Exam Limitations: no limitations Head exam: Present: atraumatic, normocephalic, normal inspection Eye exam: Present: normal appearance, PERRL, EOMI. Absent: scleral icterus, conjunctival injection, periorbital swelling Respiratory exam: Present: normal lung sounds bilaterally. Absent: respiratory distress, wheezes, rales, rhonchi, stridor Cardiovascular Exam: Present: normal rhythm, tachycardia, normal heart sounds. Absent: regular rate, systolic murmur, diastolic murmur, rubs, gallop, clicks GI/Abdominal exam: Present: soft, normal bowel sounds. Absent: distended, tenderness, guarding, rebound, rigid Neurological exam: Present: alert, oriented X3, CN II-XII intact Psychiatric exam: Present: normal affect, normal mood Skin exam: Present: warm, dry, intact, normal color. Absent: rash Course Vital Signs 08/28/22 08/28/22 16:36 17:55 Temperature 97.7 F Pulse Rate 108 H 85 Respiratory 20 16 Rate Blood Pressure 112/85 114/52 O2 Sat by Pulse 95 98 Oximetry Medical Decision Making - Medical Decision Making Was pt. sent in by a medical professional or institution ([facility], PROCESSING REP, urgent care, hospital, or fdc...) When possible be specific @ -No Did you speak to anyone other than the patient for history (EMS, parent, family, police, friend...)? What history was obtained from this source @ -No Did you review nursing and triage notes (agree or disagree)? Why? @ -I reviewed and agree with nursing and triage notes Were old charts reviewed (outside hosp., previous admission, EMS record, old EKG, old radiological studies, urgent care reports/EKG's, fdc records)? Report findings @ -No old charts were reviewed Differential Diagnosis (chest pain, altered mental status, abdominal pain women, abdominal pain men, vaginal bleeding, weakness, fever, dyspnea, syncope, headache, dizziness, GI bleed, back pain, seizure, CVA, palpatations, mental health)? @ -URI, colitis, , cholelithiasis, choleycstitis-this list is not all inclusive EKG interpreted by me (3pts min.). @ -As above X-rays interpreted by me (1pt min.). @ -None done CT interpreted by me (1pt min.). @ -None done U/S interpreted by me (1pt. min.). @ -None done What testing was considered but not performed or refused? (CT, X-rays, U/S, labs)? Why? @ -None What meds were considered but not given or refused? Why? @ -None Did you discuss the management of the patient with other professionals (professionals i.e. Dr., PA, PROCESSING REP, lab, RT, psych nurse, dialysis social worker, apron operator, teacher, hydrological technical officer, disability case manager)? Give summary @ -No Was smoking cessation discussed for >3mins.? @ -No Was critical care preformed (if so, how long)? @ -No Were there social determinants of health that impacted care today? How? (Homelessness, low income, unemployed, alcoholism, drug addiction, transportation, low edu. Level, literacy, decrease access to med. care, snf, rehab)? @ -No Was there de-escalation of care discussed even if they declined (Discuss DNR or withdrawal of care, Hospice)? DNR status @ -No What co-morbidities impacted this encounter? (DM, HTN, Smoking, COPD, CAD, Cancer, CVA, ARF, Chemo, Hep., AIDS, mental health diagnosis, sleep apnea, morbi d obesity)? @ -None Was patient admitted / discharged? Hospital course, mention meds given and route, prescriptions, significant lab abnormalities, going to OR and other pertinent info. @ -Patient presenting for vomiting during first trimester.She is mildly tachycardic at 108. Afebrile. Labs obtained. There is no leukocytosis. There is mild hyponatremia which was treated with normal saline. HCG Appropriate level for gestational age. Urinalysis reveals 4+ ketones and few bacteria. Patient given large fluid bolus and nausea medication. She is feeling improved and did not have any episodes of vomiting in the emergency department. She does not have any abdominal pain or vaginal bleeding. Patient will be discharged with likely just and Keflex for asymptomatic urinary tract infection. Return parameters discussed. Undiagnosed new problem with uncertain prognosis? @ -No Drug Therapy requiring intensive monitoring for toxicity (Heparin, Nitro, Insulin, Cardizem)? @ -No Were any procedures done? @ -No Diagnosis/symptom? @ -Nausea and vomiting in Acute, or Chronic, or Acute on Chronic? @ -acute Uncomplicated (without systemic symptoms) or Complicated (systemic symptoms)? @ -uncomplicated Side effects of treatment? @ -No Exacerbation, Progression, or Severe Exacerbation? @ -No Poses a threat to life or bodily function? How? (Chest pain, USA, NM, pneumonia, PE, COPD, DKA, ARF, appy, cholecystitis, CVA, Diverticulitis, Homicidal, Suicidal, threat to staff... and all critical care pts) @ -No Dr. Mota is my attending - Lab Data Result diagrams: 08/28/22 17:02 08/28/22 17:02 Lab Results 08/28/22 08/28/22 08/28/22 Range/Units 17:02 17:02 18:02 WBC 9.4 (3.8-10.6) k/uL RBC 4.73 (3.80-5.40) m/uL Hgb 14.6 (11.4-16.0) gm/dL Hct 41.9 (34.0-46.0) % MCV 88.6 (80.0-100.0) fL MCH 30.9 (25.0-35.0) pg MCHC 34.9 (31.0-37.0) g/dL RDW 12.8 (11.5-15.5) % Plt Count 282 D (150-450) k/uL MPV 6.7 Neutrophils % 79 % Lymphocytes % 14 % Monocytes % 5 % Eosinophils % 1 % Basophils % 0 % Neutrophils # 7.4 (1.3-7.7) k/uL Lymphocytes # 1.3 (1.0-4.8) k/uL Monocytes # 0.5 (0-1.0) k/uL Eosinophils # 0.1 (0-0.7) k/uL Basophils # 0.0 (0-0.2) k/uL Sodium 136 L (137-145) mmol/L Potassium 3.7 (3.5-5.1) mmol/L Chloride 104 (98-107) mmol/L Carbon Dioxide 23 (22-30) mmol/L Anion Gap 9 mmol/L BUN 7 (7-17) mg/dL Creatinine 0.40 L (0.52-1.04) mg/dL Est GFR (CKD-EPI)AfAm >90 (>60 ml/min/1.73 sqM) Est GFR (CKD-EPI)NonAf >90 (>60 ml/min/1.73 sqM) Glucose 86 (74-99) mg/dL Calcium 9.1 (8.4-10.2) mg/dL Total Bilirubin 0.7 (0.2-1.3) mg/dL AST 16 (14-36) U/L ALT 15 (4-34) U/L Alkaline Phosphatase 81 (38-126) U/L Total Protein 7.0 (6.3-8.2) g/dL Albumin 4.1 (3.5-5.0) g/dL Lipase 60 (23-300) U/L HCG, Quant >546661.0 mIU/mL Urine Color Yellow Urine Appearance Cloudy H (Clear) Urine pH 6.5 (5.0-8.0) Ur Specific Perry 1.028 (1.001-1.035) Urine Protein 1+ H (Negative) Urine Glucose (UA) Negative (Negative) Urine Ketones 4+ H (Negative) Urine Blood Negative (Negative) Urine Nitrite Negative (Negative) Urine Bilirubin Negative (Negative) Urine Urobilinogen 4.0 (<2.0) mg/dL Ur Leukocyte Esterase Negative (Negative) Urine RBC 3 (0-5) /hpf Urine WBC 5 (0-5) /hpf Ur Squamous Epith Cells 1 (0-4) /hpf Urine Bacteria Few H (None) /hpf Urine Mucus Moderate H (None) /hpf Disposition Clinical Impression: Nausea and vomiting during Disposition: HOME SELF-CARE Condition: Good Instructions (If sedation given, give patient instructions): Nausea and Vomiting in (ED) Additional Instructions: Take medication as directed. Follow-up with OB in 1-2 days. Return to emergency department if you experience new, concerning, or worsening symptoms. Prescriptions: Doxylamine Succinate/Vit B6 [Diclegis Dr 10-10 mg Tablet] 1 tab PO DAILY PRN #16 tab PRN Reason: Vomiting Cephalexin [Keflex] 250 mg PO Q6HR #20 cap Is patient prescribed a controlled substance at d/c from ED?: No Referrals: Alon Oakes MD [Primary Care Provider] - 1-2 days Time of Disposition: 20:04
[2022-08-28 17:29] LABS: Basophils % (A) 0 %; Eosinophils # (A) 0.1 k/uL (0-0.7); Eosinophils % (A) 1 %; HCT 41.9 % (34.0-46.0); HGB 14.6 gm/dL (11.4-16.0); Lymphocytes # (A) 1.3 k/uL (1.0-4.8); Lymphocytes % (A) 14 %; MCH 30.9 pg (25.0-35.0); MCHC 34.9 g/dL (31.0-37.0); MCV 88.6 fL (80.0-100.0); Mean Platelet Volume 6.7; Monocytes # (A) 0.5 k/uL (0-1.0); Monocytes % (A) 5 %; Neutrophils # (A) 7.4 k/uL (1.3-7.7); Neutrophils % (A) 79 %; RBC 4.73 m/uL (3.80-5.40); RDW 12.8 % (11.5-15.5); WBC 9.4 k/uL (3.8-10.6)
[2022-08-28 17:52] LABS: Platelet Count 282 k/uL (150-450)
[2022-08-28 17:54] LABS: ALT 15 U/L (4-34); AST 16 U/L (14-36); African American GFR (CKD) >90 (>60 ml/min/1.73 sqM); Albumin 4.1 g/dL (3.5-5.0); Alkaline Phosphatase 81 U/L (38-126); Anion Gap 9 mmol/L; Blood Urea Nitrogen 7 mg/dL (7-17); Calcium 9.1 mg/dL (8.4-10.2); Carbon Dioxide 23 mmol/L (22-30); Chloride 104 mmol/L (98-107); Glucose 86 mg/dL (74-99); Lipase 60 U/L (23-300); Non-African American GFR(CKD) >90 (>60 ml/min/1.73 sqM); Potassium 3.7 mmol/L (3.5-5.1); Sodium 136 mmol/L (137-145); Total Bilirubin 0.7 mg/dL (0.2-1.3)
[2022-08-28 18:16] VITALS: BP 114/52; PULSE 85; RESP 16
[2022-08-28] MEDS ORDERED: ONDANSETRON 4 MG/2 ML VIAL IVP STA ×2 (18:23→19:45)
[2022-08-28 18:42] LABS: Appearance,Urine Cloudy (Clear); Bacteria,Urine Few /hpf; Bilirubin,Urine Negative (Negative); Blood,Urine Negative (Negative); Color,Urine Yellow; Glucose,Urine (UA) Negative (Negative); Ketones,Urine 4+ (Negative); Leukocyte Esterase,Urine Negative (Negative); Mucus,Urine Moderate /hpf; Nitrite,Urine Negative (Negative); PH, Urine 6.5 (5.0-8.0); Protein,Urine 1+ (Negative); RBC,Urine 3 /hpf (0-5); Specific Gravity,Urine 1.028 (1.001-1.035); Squamous Epithelial Cell,Urine 1 /hpf (0-4); WBC,Urine 5 /hpf (0-5)
[2022-08-28] MEDS ORDERED: CEPHALEXIN 250 MG CAP PO STA (19:09)
[2022-08-28 19:28] LABS: HCG,Quantitative Serum >225000.0 mIU/mL
== END 2022-08-28 20:20 | disposition home or self-care (01) ==
LOC: EC 16:35
DX: O21.9 Vomiting of pregnancy, unspecified (principal); Z3A.10 10 weeks gestation of pregnancy; Z88.8 Allergy status to other drugs, medicaments and biological substances; Z91.018 Allergy to other foods
CPT/HCPCS: 36415; 80053; 83690; 85025; 81001; 84702; 99284; 96374; 96375 ×2; 96376; 96361 ×2; J1200; J3415; J2405

== ENCOUNTER 2022-09-08 12:55 | Emergency (ER) | payer BC, OTHER ==
[2022-09-08 13:56] LABS: Appearance,Urine Cloudy (Clear); Bacteria,Urine Moderate /hpf; Bilirubin,Urine 1+ (Negative); Blood,Urine Negative (Negative); Color,Urine Dark Yellow; Glucose,Urine (UA) Negative (Negative); Ketones,Urine 4+ (Negative); Leukocyte Esterase,Urine Small (Negative); Mucus,Urine Many /hpf; Nitrite,Urine Negative (Negative); Protein,Urine 1+ (Negative); Specific Gravity,Urine 1.033 (1.001-1.035); Squamous Epithelial Cell,Urine 6 /hpf (0-4); WBC,Urine 11 /hpf (0-5)
--- NOTE | 2022-09-08 14:34 | ED ---
Female Urogenital HPI - General Source: patient Mode of arrival: ambulatory Limitations: no limitations - History of Present Illness Complaint: vaginal bleeding, vaginal discharge Last Menstrual Period: 06/21/22 <Christina Jimenez - Last Filed: 09/08/22 14:31> - General Source: RN notes reviewed, old records reviewed - History of Present Illness Complaint: dysuria, pelvic pain, other (Right flank pain) -: days(s) Radiation: R flank Severity: moderate Severity scale (1-10): 4 Quality: dull Consistency: constant Improves with: none Worsens with: urination Patient : Yes Associated Symptoms: abdominal pain, nausea/vomiting - Related Data Sexually active: No <Gallo Davidson - Last Filed: 09/08/22 18:58> - General Chief complaint: Abdominal Pain Stated complaint: 12 wks , spotting Time Seen by Provider: 09/08/22 14:30 - History of Present Illness Initial comments: This is a 27-year-old female who presents to the emergency department for vaginal bleeding and discharge. Describes the bleeding as spotting. 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 She has a history of hyperemesis gravidarum and otherwise no complications. (Christina Jimenez) This is a 27-year-old female DF for evaluation. Patient has some occasional spotting with vaginal bleeding she believes discharge with recent diagnosis of urinary tract infection. Patient does have history of hCG is her second both of the complicated by severe nausea vomiting and positive for hCG. Patient believes her urinary tract infection may be turning into a kidney infection with right-sided flank pain. Otherwise patient has no travel history no sick contacts no fevers (Gallo Davidson) - Related Data Home Medications Medication Instructions Recorded Confirmed Ondansetron [Zofran] 4 mg PO QID PRN 08/28/22 09/08/22 diphenhydrAMINE HCL [Benadryl] 50 mg PO HS 09/08/22 09/08/22 Previous Rx's Medication Instructions Recorded Cephalexin [Keflex] 500 mg PO Q6HR #40 cap 09/08/22 Ondansetron Odt [Zofran ODT] 4 mg PO Q8HR PRN #10 tab 09/08/22 Allergies Allergy/AdvReac Type Severity Reaction Status Date / Time lemon Allergy Rash/Hives Verified 09/08/22 16:33 lemon oil Allergy Rash/Hives Verified 09/08/22 16:33 metoclopramide [From Reglan] Allergy Rash/Hives Verified 09/08/22 16:33 Review of Systems ROS Other: All systems not noted in ROS Statement are negative. <Christina Jimenez - Last Filed: 09/08/22 14:31> ROS Other: All systems not noted in ROS Statement are negative. <Gallo Davidson - Last Filed: 09/08/22 18:58> ROS Statement: Those systems with pertinent positive or pertinent negative responses have been documented in the HPI. Past Medical History Past Medical History: No Reported History Additional Past Medical History / Comment(s): ovarian cysts. mononucleosis, hyperemesis History of Any Multi-Drug Resistant Organisms: None Reported Past Surgical History: Adenoidectomy, Cardiac Ablation, Section, Tonsillectomy Past Anesthesia/Blood Transfusion Reactions: No Reported Reaction Past Psychological History: No Psychological Hx Reported Smoking Status: Never smoker Past Alcohol Use History: None Reported Past Drug Use History: None Reported - Past Family History Mother Additional Family Medical History / Comment(s): bipolar, depressed Father History Unknown: Yes <Christina Jimenez - Last Filed: 09/08/22 14:31> General Exam Limitations: no limitations <Christina Jimenez - Last Filed: 09/08/22 14:31> General appearance: alert, in no apparent distress Head exam: Present: atraumatic, normocephalic, normal inspection Eye exam: Present: normal appearance, PERRL, EOMI. Absent: scleral icterus, conjunctival injection, periorbital swelling ENT exam: Present: normal exam, mucous membranes dry Neck exam: Present: normal inspection. Absent: tenderness, meningismus, lymphadenopathy Respiratory exam: Present: normal lung sounds bilaterally. Absent: respiratory distress, wheezes, rales, rhonchi, stridor Cardiovascular Exam: Present: normal rhythm, tachycardia, normal heart sounds. Absent: systolic murmur, diastolic murmur, rubs, gallop, clicks GI/Abdominal exam: Present: soft, normal bowel sounds. Absent: distended, tenderness, guarding, rebound, rigid Extremities exam: Present: normal inspection, full ROM, normal capillary refill. Absent: tenderness, pedal edema, joint swelling, calf tenderness Back exam: Present: normal inspection Neurological exam: Present: alert, oriented X3, CN II-XII intact Psychiatric exam: Present: normal affect, normal mood Skin exam: Present: warm, dry, intact, normal color. Absent: rash <Gallo Davidson - Last Filed: 09/08/22 18:58> - General Exam Comments Initial Comments: Visual Physical Exam Vital signs reviewed General: Well-appearing, nontoxic, no acute distress. Head: Normocephalic, atraumatic Eyes: PERRLA, EOMI ENT: Airway patent Chest: Nonlabored breathing Skin: No visual rash, normal skin tone Neuro: Alert and oriented 3 Musculoskeletal: No gross abnormalities (Christina Jimenez) Course <Gallo Davidson - Last Filed: 09/08/22 18:58> Vital Signs 09/08/22 09/08/22 09/08/22 13:16 15:49 16:40 Temperature 98.2 F 96.2 F L Pulse Rate 107 H 94 98 Respiratory 18 16 24 Rate Blood Pressure 133/82 115/78 120/68 O2 Sat by Pulse 96 97 98 Oximetry - Reevaluation(s) Reevaluation #1: 09/08/22 16:37 Medical record is reviewed (Gallo Davidson) Reevaluation #2: 09/08/22 16:37 Patient symptoms are improving although developing some mild current chest pain (Gallo Davidson) Reevaluation #3: 09/08/22 16:37 Patient informed results and questions answered (Gallo Davidson) Reevaluation #4: 09/08/22 16:37 Was pt. sent in by a medical professional or institution? @ -no Did you speak to anyone other than the patient for history? @ -no Did you review nursing and triage notes? @ -agree Were old charts reviewed? @ -yes as well as prior EKGs Differential Diagnosis? @ -prior EKG interpreted by me (3pts min.)? @ -yes X-rays interpreted by me (1pt min.)? @ -no] CT interpreted by me (1pt min.)? @ -no] U/S interpreted by me (1pt. min.)? @ -no What testing was considered but not performed? (CT, X-rays, U/S, labs)? Why? @ -no What meds were considered but not given? Why? @ -no Did you discuss the management of the patient with other professionals? @ -no Did you reconcile home meds? @ -no Was smoking cessation discussed for >3mins.? @ -no Was critical care preformed (if so, how long)? @ -no Sociial determinants of health that impacted care today? How? (Homelessness, low income, unemployed, alcoholism, drug addiction, transportation, low edu. Level, literacy, decrease access to med. care, shelter, rehab)? @ -no Was there de-escalation of care discussed even if they declined? (Discuss DNR or withdrawal of care, Hospice)? @ -no What co-morbidities impacted this encounter? (DM, HTN, Smoking, COPD, CAD, Cancer, CVA, Hep., AIDS, mental health diagnosis, sleep apnea, morbid obesity)? @ -no Was patient admitted / discharged? @ -no Undiagnosed new problem with uncertain prognosis? @ -no Drug Therapy requiring intensive monitoring for toxicity (Heparin, Nitro, Ins ulin, Cardizem)? @ -no Were any procedures done? @ -no Diagnosis/symptom? @ -no Acute, or Chronic, or Acute on Chronic? @ -acute on chronic Uncomplicated (without systemic symptoms) or Complicated (systemic symptoms)? @ -no Side effects of treatment? @ -no Exacerbation, Progression, or Severe Exacerbation] @ -no Poses a threat to life or bodily function? @ -could with possibly sepsis (Gallo Davidson) Reevaluation #5: 09/08/22 16:37 Differential Abdominal Pain Women: Appendicitis, Cholecystitis, diverticulosis, ischemic bowel, pancreatitis, hepatitis, UTI, gastroenteritis, AAA, incarcerated hernia, bowel obstruction, constipation, inflammatory bowel, hepatitis, peptic ulcer disease, splenic infarction, perforated viscus, vulvitis, ovarian torsion, PID, kidney stone, placenta abruption, this is not meant to be an all-inclusive list (Gallo Graham) - Consultations Consultation #1: Did speak with Dr. Chau regarding flank pain with UTI and Hgb, without active vomiting with abnormal vital signs Dr. Chau recommends culture urine currently and we will discharge patient home (Gallo Davidson) Medical Decision Making - Lab Data Result diagrams: 09/08/22 15:22 09/08/22 15:22 - EKG Data -: EKG Interpreted by Me (EKG shows Sinus tachycardia 113 AZ 140 QRS 78 QTc 400) - Radiology Data Radiology results: report reviewed (Chest x-rays negative for acute disease), image reviewed <Gallo Davidson - Last Filed: 09/08/22 18:58> - Medical Decision Making 27 female DF for evaluation patient does suffer from hCG currently with urinary tract infection right flank pain given IV antibiotics will continue outpatient antibiotics and can be discharged home (Gallo Davidson) - Lab Data Lab Results 09/08/22 09/08/22 09/08/22 Range/Units 13:30 15:22 15:22 WBC 8.0 (3.8-10.6) k/uL RBC 4.75 (3.80-5.40) m/uL Hgb 14.8 (11.4-16.0) gm/dL Hct 42.6 (34.0-46.0) % MCV 89.7 (80.0-100.0) fL MCH 31.2 (25.0-35.0) pg MCHC 34.7 (31.0-37.0) g/dL RDW 12.8 (11.5-15.5) % Plt Count 261 (150-450) k/uL MPV 6.7 Neutrophils % 77 % Lymphocytes % 16 % Monocytes % 5 % Eosinophils % 1 % Basophils % 0 % Neutrophils # 6.2 (1.3-7.7) k/uL Lymphocytes # 1.3 (1.0-4.8) k/uL Monocytes # 0.4 (0-1.0) k/uL Eosinophils # 0.1 (0-0.7) k/uL Basophils # 0.0 (0-0.2) k/uL Sodium 136 L (137-145) mmol/L Potassium 4.1 (3.5-5.1) mmol/L Chloride 100 (98-107) mmol/L Carbon Dioxide 26 (22-30) mmol/L Anion Gap 10 mmol/L BUN 6 L (7-17) mg/dL Creatinine 0.54 (0.52-1.04) mg/dL Est GFR (CKD-EPI)AfAm >90 (>60 ml/min/1.73 sqM) Est GFR (CKD-EPI)NonAf >90 (>60 ml/min/1.73 sqM) Glucose 112 H (74-99) mg/dL Calcium 9.4 (8.4-10.2) mg/dL Phosphorus (2.5-4.5) mg/dL Magnesium (1.6-2.3) mg/dL Total Bilirubin 0.8 (0.2-1.3) mg/dL AST 18 (14-36) U/L ALT 19 (4-34) U/L Alkaline Phosphatase 78 (38-126) U/L Total Protein 6.8 (6.3-8.2) g/dL Albumin 3.9 (3.5-5.0) g/dL HCG, Quant 324175.0 mIU/mL Urine Color Dark Yellow Urine Appearance Cloudy H (Clear) Urine pH 6.0 (5.0-8.0) Ur Specific [place] 1.033 (1.001-1.035) Urine Protein 1+ H (Negative) Urine Glucose (UA) Negative (Negative) Urine Ketones 4+ H (Negative) Urine Blood Negative (Negative) Urine Nitrite Negative (Negative) Urine Bilirubin 1+ H (Negative) Urine Urobilinogen 4.0 (<2.0) mg/dL Ur Leukocyte Esterase Small H (Negative) Urine RBC (0-5) /hpf Urine WBC 11 H (0-5) /hpf Ur Squamous Epith Cells 6 H (0-4) /hpf Urine Bacteria Moderate H (None) /hpf Urine Mucus Many H (None) /hpf Blood Type Blood Type Recheck Bld Type Recheck Status 09/08/22 09/08/22 09/08/22 Range/Units 15:22 16:58 17:02 WBC (3.8-10.6) k/uL RBC (3.80-5.40) m/uL Hgb (11.4-16.0) gm/dL Hct (34.0-46.0) % MCV (80.0-100.0) fL MCH (25.0-35.0) pg MCHC (31.0-37.0) g/dL RDW (11.5-15.5) % Plt Count (150-450) k/uL MPV Neutrophils % % Lymphocytes % % Monocytes % % Eosinophils % % Basophils % % Neutrophils # (1.3-7.7) k/uL Lymphocytes # (1.0-4.8) k/uL Monocytes # (0-1.0) k/uL Eosinophils # (0-0.7) k/uL Basophils # (0-0.2) k/uL Sodium (137-145) mmol/L Potassium (3.5-5.1) mmol/L Chloride (98-107) mmol/L Carbon Dioxide (22-30) mmol/L Anion Gap mmol/L BUN (7-17) mg/dL Creatinine (0.52-1.04) mg/dL Est GFR (CKD-EPI)AfAm (>60 ml/min/1.73 sqM) Est GFR (CKD-EPI)NonAf (>60 ml/min/1.73 sqM) Glucose (74-99) mg/dL Calcium (8.4-10.2) mg/dL Phosphorus 3.6 (2.5-4.5) mg/dL Magnesium 1.7 (1.6-2.3) mg/dL Total Bilirubin (0.2-1.3) mg/dL AST (14-36) U/L ALT (4-34) U/L Alkaline Phosphatase (38-126) U/L Total Protein (6.3-8.2) g/dL Albumin (3.5-5.0) g/dL HCG, Quant mIU/mL Urine Color Yellow Urine Appearance Cloudy H (Clear) Urine pH 6.0 (5.0-8.0) Ur Specific [place] 1.010 (1.001-1.035) Urine Protein Negative (Negative) Urine Glucose (UA) Negative (Negative) Urine Ketones 3+ H (Negative) Urine Blood Negative (Negative) Urine Nitrite Negative (Negative) Urine Bilirubin Negative (Negative) Urine Urobilinogen <2.0 (<2.0) mg/dL Ur Leukocyte Esterase Negative (Negative) Urine RBC 4 (0-5) /hpf Urine WBC 7 H (0-5) /hpf Ur Squamous Epith Cells 3 (0-4) /hpf Urine Bacteria Many H (None) /hpf Urine Mucus Many H (None) /hpf Blood Type O Positive Blood Type Recheck O Pos Bld Type Recheck Status No Disposition <Christina Jimenez - Last Filed: 09/08/22 14:31> Is patient prescribed a controlled substance at d/c from ED?: No Time of Disposition: 19:00 <Gallo Davidson - Last Filed: 09/08/22 18:58> Clinical Impression: Dehydration, Moderate dehydration, Hyperemesis gravidarum, UTI (urinary tract infection) Disposition: HOME SELF-CARE Condition: Good Instructions (If sedation given, give patient instructions): Urinary Tract Infection in (ED), Hyperemesis Gravidarum (ED) Prescriptions: Cephalexin [Keflex] 500 mg PO Q6HR #40 cap Ondansetron Odt [Zofran ODT] 4 mg PO Q8HR PRN #10 tab PRN Reason: nausea/vomiting Referrals: Alon Oakes MD [Primary Care Provider] - 1-2 days
--- NOTE | 2022-09-08 14:46 | US ---
EXAMINATION TYPE: Transabdominal DATE OF EXAM: 09/08/2022 2:29 PM COMPARISON: US dated 08/04/2022 CLINICAL HISTORY: Vaginal bleeding in . EXAM PERFORMED: Transabdominal (TA) EXAM MEASUREMENTS: GESTATIONAL AGE / DATING Physician Established: (11 weeks/2 days) EDC: 03/28/2023 Dates by First Scan: unable to date by first scan Dates by Current Scan for: (11 weeks/3 days) EDC: 03/27/2023 MATERNAL ANATOMY Uterus: 11.9 x 9.6 x 9.2 cm Right Ovary: 3.4 x 1.5 x 3.3 cm Left Ovary: 2.9 x 1.5 x 1.9 cm Post CDS / Adnexa: wnl GESTATION / SURVEY CRL: 4.7 cm (11 weeks/3 days) Yolk Sac (normal less than 6mm): not seen Heart Rate: 152 bpm Rhythm: Normal IUP: Viable IUP Single, viable IUP that correlates with patient's physician established due date. IMPRESSION: Single viable intrauterine gestation with estimated gestational age of 11 weeks 3 days and estimated due date of 03/27/2023.
[2022-09-08] MEDS ORDERED: SODIUM CHLORIDE 0.9% 500 ML 500 ML IV STA (15:47)
[2022-09-08] MEDS ORDERED: SODIUM CHLORIDE 0.9% 1,000 ML IV STA ×2 (15:47)
[2022-09-08] MEDS ORDERED: diphenhydrAMINE 50 MG/ML 1 ML VIAL IVP STA (15:47)
[2022-09-08] MEDS ORDERED: PANTOPRAZOLE 40 MG/10 ML VIAL IVP STA (15:47)
[2022-09-08 15:53] LABS: Basophils % (A) 0 %; Eosinophils # (A) 0.1 k/uL (0-0.7); Eosinophils % (A) 1 %; HCT 42.6 % (34.0-46.0); HGB 14.8 gm/dL (11.4-16.0); Lymphocytes # (A) 1.3 k/uL (1.0-4.8); Lymphocytes % (A) 16 %; MCH 31.2 pg (25.0-35.0); MCHC 34.7 g/dL (31.0-37.0); MCV 89.7 fL (80.0-100.0); Mean Platelet Volume 6.7; Monocytes # (A) 0.4 k/uL (0-1.0); Monocytes % (A) 5 %; Neutrophils # (A) 6.2 k/uL (1.3-7.7); Neutrophils % (A) 77 %; Platelet Count 261 k/uL (150-450); RBC 4.75 m/uL (3.80-5.40); RDW 12.8 % (11.5-15.5)
[2022-09-08 16:11] LABS: ALT 19 U/L (4-34); AST 18 U/L (14-36); African American GFR (CKD) >90 (>60 ml/min/1.73 sqM); Albumin 3.9 g/dL (3.5-5.0); Alkaline Phosphatase 78 U/L (38-126); Anion Gap 10 mmol/L; Blood Urea Nitrogen 6 mg/dL (7-17); Calcium 9.4 mg/dL (8.4-10.2); Carbon Dioxide 26 mmol/L (22-30); Chloride 100 mmol/L (98-107); Glucose 112 mg/dL (74-99); Non-African American GFR(CKD) >90 (>60 ml/min/1.73 sqM); Potassium 4.1 mmol/L (3.5-5.1); Sodium 136 mmol/L (137-145); Total Bilirubin 0.8 mg/dL (0.2-1.3); Total Protein 6.8 g/dL (6.3-8.2)
[2022-09-08] MEDS ORDERED: ACETAMINOPHEN IV (For NPO) 1,000 MG in EMPTY BAG 1 BAG IVPB STA (16:30)
--- NOTE | 2022-09-08 17:34 | XR ---
EXAMINATION TYPE: XR chest 1V portable DATE OF EXAM: 09/08/2022 5:21 PM COMPARISON: Chest radiographs from 09/22/2021 TECHNIQUE: XR chest 1V portable Frontal view of the chest. CLINICAL INDICATION:Female, 27 years old with history of cp; FINDINGS: Lungs/Pleura: There is no evidence of pleural effusion, focal consolidation, or pneumothorax. Pulmonary vascularity: Unremarkable. Heart/mediastinum: Cardiomediastinal silhouette is unremarkable. Musculoskeletal: No acute osseous pathology. IMPRESSION: No acute cardiopulmonary disease/process.
[2022-09-08 17:35] LABS: Appearance,Urine Cloudy (Clear); Bacteria,Urine Many /hpf; Bilirubin,Urine Negative (Negative); Blood,Urine Negative (Negative); Color,Urine Yellow; Glucose,Urine (UA) Negative (Negative); Ketones,Urine 3+ (Negative); Leukocyte Esterase,Urine Negative (Negative); Mucus,Urine Many /hpf; Nitrite,Urine Negative (Negative); Protein,Urine Negative (Negative); RBC,Urine 4 /hpf (0-5); Squamous Epithelial Cell,Urine 3 /hpf (0-4); Urobilinogen,Urine <2.0 mg/dL (<2.0); WBC,Urine 7 /hpf (0-5)
[2022-09-08 17:51] LABS: Magnesium 1.7 mg/dL (1.6-2.3); Phosphorus 3.6 mg/dL (2.5-4.5)
[2022-09-08] MEDS ORDERED: CEPHALEXIN 500MG STARTER PACK 4 CAP BTL PO STA (18:50)
[2022-09-08] MEDS ORDERED: ONDANSETRON 4 MG ODT STARTER PACK 2 TAB BTL PO STA (18:50)
[2022-09-08] MEDS ORDERED: PYRIDOXINE 100 MG/ML 1 ML VIAL IVP STA (18:56)
[2022-09-08 19:00] VITALS: BP 144/78; PULSE 79; RESP 18; TEMP 98.6
== END 2022-09-08 19:22 | disposition home or self-care (01) ==
LOC: EC 12:55
DX: O21.1 Hyperemesis gravidarum with metabolic disturbance (principal); E86.0 Dehydration; O23.40 Unspecified infection of urinary tract in pregnancy, unspecified trimester; Z91.018 Allergy to other foods; Z88.8 Allergy status to other drugs, medicaments and biological substances; Z3A.12 12 weeks gestation of pregnancy
CPT/HCPCS: 36415; 93005; 86900; 86901; 80053; 83735; 84100; 85025; 81001; 84702; 87086; 71045; 76801; 99285; 96365; 96367; 96375 ×3; 96361; J1200; J3415; J0696; J0131; S0119; C9113

== ENCOUNTER 2022-12-07 13:12 | Emergency (ER) | payer BC, OTHER ==
[2022-12-07 13:22] VITALS: RESP 18
[2022-12-07 13:53] LABS: Basophils % (A) 0 %; Eosinophils # (A) 0.2 k/uL (0-0.7); Eosinophils % (A) 2 %; HCT 34.5 % (34.0-46.0); HGB 11.9 gm/dL (11.4-16.0); Lymphocytes # (A) 1.9 k/uL (1.0-4.8); Lymphocytes % (A) 15 %; MCH 32.2 pg (25.0-35.0); MCHC 34.6 g/dL (31.0-37.0); MCV 93.1 fL (80.0-100.0); Mean Platelet Volume 7.4; Monocytes # (A) 0.7 k/uL (0-1.0); Monocytes % (A) 5 %; Neutrophils # (A) 9.8 k/uL (1.3-7.7); Neutrophils % (A) 77 %; Platelet Count 278 k/uL (150-450); WBC 12.8 k/uL (3.8-10.6)
[2022-12-07 14:01] LABS: Amorphous Sediment,Urine Few /hpf; Appearance,Urine Cloudy (Clear); Bacteria,Urine Rare /hpf; Bilirubin,Urine Negative (Negative); Blood,Urine Negative (Negative); Color,Urine Yellow; Glucose,Urine (UA) Negative (Negative); Ketones,Urine Negative (Negative); Leukocyte Esterase,Urine Negative (Negative); Mucus,Urine Rare /hpf; Nitrite,Urine Negative (Negative); PH, Urine 7.5 (5.0-8.0); Protein,Urine Trace (Negative); RBC,Urine <1 /hpf (0-5); Specific Gravity,Urine 1.016 (1.001-1.035); Squamous Epithelial Cell,Urine 4 /hpf (0-4); Urobilinogen,Urine <2.0 mg/dL (<2.0); WBC,Urine 3 /hpf (0-5)
[2022-12-07 14:04] LABS: ALT 10 U/L (4-34); AST 16 U/L (14-36); African American GFR (CKD) >90 (>60 ml/min/1.73 sqM); Albumin 3.2 g/dL (3.5-5.0); Alkaline Phosphatase 93 U/L (38-126); Anion Gap 7 mmol/L; Blood Urea Nitrogen 5 mg/dL (7-17); Calcium 8.4 mg/dL (8.4-10.2); Carbon Dioxide 21 mmol/L (22-30); Chloride 107 mmol/L (98-107); Glucose 92 mg/dL (74-99); Magnesium 1.6 mg/dL (1.6-2.3); Non-African American GFR(CKD) >90 (>60 ml/min/1.73 sqM); Potassium 3.9 mmol/L (3.5-5.1); Sodium 135 mmol/L (137-145); Total Bilirubin 0.3 mg/dL (0.2-1.3); Total Protein 6.1 g/dL (6.3-8.2)
[2022-12-07 14:10] LABS: INR 0.9 (<1.2); Partial Thromboplastin Time 22.6 sec (22.0-30.0); Prothrombin Time 9.8 sec (9.0-12.0)
--- NOTE | 2022-12-07 15:25 | CT ---
EXAMINATION TYPE: CT chest angio for PE DATE OF EXAM: 12/07/2022 COMPARISON: none HISTORY: elevated d-dimer, syncope, abnormal EKG CT DLP: 357.8 mGycm CONTRAST: CT chest with contrast and 3D reconstruction with MIP imaging is performed with IV Contrast, patient injected with 83cc mL of Isovue 370. Contrast-enhanced CT of the chest was performed through the course of the pulmonary arteries with horacio g and mediastinal window settings submitted. 3D reconstruction with MIP imaging was also performed. PULMONARY ARTERIES: The pulmonary arteries and their major tributaries are patent. I do not see chad dence for sizable filling defect to suggest pulmonary embolic process. LUNGS: The lungs are clear and free of infiltrate. No evidence for atelectasis. No pulmonary nodule or mass is detected. No pleural effusion. MEDIASTINUM: Thoracic aorta is of normal caliber,however, evaluation is limited given timing of the contrast bolus. If there is concern for thoracic aortic pathology consider CATHERINE. Correlate clinicall y . The heart is not enlarged. No evidence for mediastinal mass. No mediastinal lymph nodes greater than 1cm. HILAR STRUCTURES: No evidence for mass. No hilar lymph nodes greater than 1 cm. UPPER ABDOMEN: No significant abnormality is seen. IMPRESSION: 1. No evidence for Pulmonary embolism at this time.
--- NOTE | 2022-12-07 15:44 | ED ---
Chest Pain HPI - General Chief Complaint: Chest Pain Stated Complaint: Chest Pain, 5mths Time Seen by Provider: 12/07/22 13:20 Source: patient Mode of arrival: ambulatory Limitations: no limitations - History of Present Illness Initial Comments: 27-year-old female presents to the emergency department with report of chest pain, shortness of breath and a syncopal episode yesterday. States that she was eating with her yesterday when she had a syncopal episode. She felt lightheaded and woke up to her trying to wake her up. He reported that she had been out for approximately 1 minute. Her family tried to get her to come into the emergency department yesterday however the patient refused. Today she woke up and was having chest pain. [place] like it was hard to breathe. Decided to bring herself into the hospital. She denies any abdominal cramping or bleeding. Has been feeling baby move. She is approximately 24 weeks . She does admit to calf cramping. No history of DVT or PE. Denies issues with hyper or hypoglycemia. Does check her sugars at home. She has not sustained any trauma because of the syncopal episode. No other alleviating, precipitating or modifying factors - Related Data Home Medications Medication Instructions Recorded Confirmed Ondansetron [Zofran] 4 mg PO QID PRN 08/28/22 09/08/22 diphenhydrAMINE HCL [Benadryl] 50 mg PO HS 09/08/22 09/08/22 Previous Rx's Medication Instructions Recorded Cephalexin [Keflex] 500 mg PO Q6HR #40 cap 09/08/22 Ondansetron Odt [Zofran ODT] 4 mg PO Q8HR PRN #10 tab 09/08/22 Allergies Allergy/AdvReac Type Severity Reaction Status Date / Time lemon Allergy Rash/Hives Verified 09/08/22 16:33 lemon oil Allergy Rash/Hives Verified 09/08/22 16:33 metoclopramide [From Reglan] Allergy Rash/Hives Verified 09/08/22 16:33 Review of Systems ROS Statement: Those systems with pertinent positive or pertinent negative responses have been documented in the HPI. ROS Other: All systems not noted in ROS Statement are negative. Past Medical History Past Medical History: No Reported History Additional Past Medical History / Comment(s): ovarian cysts. mononucleosis, hyperemesis History of Any Multi-Drug Resistant Organisms: None Reported Past Surgical History: Adenoidectomy, Cardiac Ablation, Section, Tonsillectomy Past Anesthesia/Blood Transfusion Reactions: No Reported Reaction Past Psychological History: No Psychological Hx Reported Smoking Status: Never smoker Past Alcohol Use History: None Reported Past Drug Use History: None Reported - Past Family History Mother Additional Family Medical History / Comment(s): bipolar, depressed Father History Unknown: Yes General Exam Limitations: no limitations General appearance: alert, in no apparent distress Head exam: Present: atraumatic, normocephalic, normal inspection Eye exam: Present: normal appearance, PERRL, EOMI. Absent: scleral icterus, conjunctival injection, periorbital swelling ENT exam: Present: normal exam, mucous membranes moist Neck exam: Present: normal inspection. Absent: tenderness, meningismus, lymphadenopathy Respiratory exam: Present: normal lung sounds bilaterally. Absent: respiratory distress, wheezes, rales, rhonchi, stridor Cardiovascular Exam: Present: regular rate, normal rhythm, normal heart sounds. Absent: systolic murmur, diastolic murmur, rubs, gallop, clicks GI/Abdominal exam: Present: soft, normal bowel sounds, other (gravid). Absent: distended, tenderness, guarding, rebound, rigid Extremities exam: Present: normal inspection, full ROM, normal capillary refill. Absent: tenderness, pedal edema, joint swelling, calf tenderness Back exam: Present: normal inspection Neurological exam: Present: alert, oriented X3, CN II-XII intact Psychiatric exam: Present: normal affect, normal mood Skin exam: Present: warm, dry, intact, normal color. Absent: rash Course Vital Signs 12/07/22 12/07/22 12/07/22 13:19 13:22 16:04 Temperature 97.9 F 98.7 F Pulse Rate 87 97 74 Respiratory 18 18 18 Rate Blood Pressure 123/77 130/76 118/86 O2 Sat by Pulse 96 97 97 Oximetry Chest Pain MDM - MDM Was pt. sent in by a medical professional or institution (, PA, STENOTYPE MACHINE OPERATOR, urgent care, hospital, or [place] health care facility...) When possible be specific @ -No Did you speak to anyone other than the patient for history (EMS, parent, family, police, friend...)? What history was obtained from this source @ -No Did you review nursing and triage notes (agree or disagree)? Why? @ -I reviewed and agree with nursing and triage notes Were old charts reviewed (outside hosp., previous admission, EMS record, old EKG, old radiological studies, urgent care reports/EKG's, [place] health care facility records)? Report findings @ -No old charts were reviewed Differential Diagnosis (chest pain, altered mental status, abdominal pain women, abdominal pain men, vaginal bleeding, weakness, fever, dyspnea, syncope, headache, dizziness, GI bleed, back pain, seizure, CVA, palpatations, mental health, musculoskeletal)? @ -pulmonary embolism, heart failure, pneumonia, dysrhythmia EKG interpreted by me (3pts min.). @ -Yes and demonstrates sinus rhythm with a rate of 98. MA interval 118. QRS 77. QTC of 382. Inverted T-wave in lead 3. No acute ST segment elevations X-rays interpreted by me (1pt min.). @ -None done CT interpreted by me (1pt min.). @ -no pe U/S interpreted by me (1pt. min.). @ -None done What testing was considered but not performed or refused? (CT, X-rays, U/S, labs)? Why? @ -None What meds were considered but not given or refused? Why? @ -None Did you discuss the management of the patient with other professionals (professionals i.e. , PA, STENOTYPE MACHINE OPERATOR, lab, RT, psych nurse, older adult social work specialist, explosives mixer operator, teacher, business banking officer, shelter case manager)? Give summary @ -No Was smoking cessation discussed for >3mins.? @ -No Was critical care preformed (if so, how long)? @ -No Were there social determinants of health that impacted care today? How? (Homelessness, low income, unemployed, alcoholism, drug addiction, transportation, low edu. Level, literacy, decrease access to med. care, snf, rehab)? @ -No Was there de-escalation of care discussed even if they declined (Discuss DNR or withdrawal of care, Hospice)? DNR status @ -No What co-morbidities impacted this encounter? (DM, HTN, Smoking, COPD, CAD, Cancer, CVA, ARF, Chemo, Hep., AIDS, mental health diagnosis, sleep apnea, morbid obesity)? @ -None Was patient admitted / discharged? Hospital course, mention meds given and route, prescriptions, significant lab abnormalities, going to OR and other pertinent info. @ - Upon arrival patient was placed in room 26. A thorough history and physical exam was performed. Patient placed on continuous pulse ox and cardiac monitoring. 12-lead EKG was obtained. Laboratory studies are conducted and reviewed. Laboratory studies do reveal an elevated d-dimer of 1.25. This is elevated above acceptable limits for a second trimester . Because of this I did recommend CT of the patient's chest. Patient was agreeable knowing risks of radiation exposure. CT was performed and demonstrates no signs of PE. This is discussed with the patient. She'll be discharged home and needs echo and Holter monitoring. Recommend that she follow up with her OB or PCP for this testing. Stay hydrated and eat. Return for any new or worsening symptoms. Patient was agreeable to plan and she was discharged in stable condition Undiagnosed new problem with uncertain prognosis? @ -yes Drug Therapy requiring intensive monitoring for toxicity (Heparin, Nitro, Insulin, Cardizem)? @ -No Were any procedures done? @ -No Diagnosis/symptom? @ -acute chest pain, third trimester Acute, or Chronic, or Acute on Chronic? @ -acute Uncomplicated (without systemic symptoms) or Complicated (systemic symptoms)? @ -complicated Side effects of treatment? @ -No Exacerbation, Progression, or Severe Exacerbation? @ -No Poses a threat to life or bodily function? How? (Chest pain, [place], [place], pneumonia, PE, COPD, DKA, ARF, appy, cholecystitis, CVA, Diverticulitis, Homicidal, Suicidal, threat to staff... and all critical care pts) @ -Yes patient has chest pain Disposition Clinical Impression: Chest pain Disposition: HOME SELF-CARE Condition: Stable Instructions (If sedation given, give patient instructions): Chest Pain (ED) Additional Instructions: The next step in your workup would include an echo and Holter monitoring. Have your primary care physician or OB order this. Return for any new or worsening symptoms Is patient prescribed a controlled substance at d/c from ED?: No Referrals: Alon Oakes MD [Primary Care Provider] - 1-2 days Marleen Chau DO [Family Provider] - 1-2 days Time of Disposition: 15:44
[2022-12-07 16:06] VITALS: BP 118/86; PULSE 74; TEMP 98.7
== END 2022-12-07 16:10 | disposition home or self-care (01) ==
LOC: EC 13:12
DX: O99.412 Diseases of the circulatory system complicating pregnancy, second trimester (principal); R07.89 Other chest pain; Z91.018 Allergy to other foods; Z88.6 Allergy status to analgesic agent; Z3A.24 24 weeks gestation of pregnancy
CPT/HCPCS: 36415; 93005; 85379; 83880; 80053; 83735; 84484; 85025; 85610; 85730; 81001; 71275; 99285; Q9967

== ENCOUNTER → 2022-12-07 | Outpatient (CLI) | payer BC ==
[2022-12-07 17:34] VITALS: BP 109/68; PULSE 81; RESP 16; TEMP 97.6
--- NOTE | 2022-12-17 10:27 | P.MSEPDOC ---
Presenting Problems - Arrival Data Date of Arrival on Unit: 12/07/22 Time of Arrival on Unit: 16:24 Mode of Transport: Ambulatory - Complaint OB-Reason for Admission/Chief Complaint: Other Comment: Sent up from the ED for evaluation 24.1 weeks after being cleared from ED for chest pain Medical History - Information : 2 Para: 1 Term: 1 : 0 Abortions: Spontaneous or Elective: 0 Number of Living Children: 1 - Gestational Age Gestational Age by ARTI (wks/days): 24 Weeks and 1 Days Review of Systems - Review of Systems Constitutional: No problems Breast: No problems ENT: No problems Cardiovascular: No problems Respiratory: No problems Gastrointestinal: No problems Genitourinary: No problems Musculoskeletal: No problems Neurological: No problems Skin: No problems Vital Signs - Temperature Temperature: 97.6 F Temperature Source: Temporal Artery Scan - Pulse Supine Pulse Rate: 81 Pulse Assessment Method: Automatic Cuff - Respirations Respiratory Rate: 16 Oxygen Delivery Method: Room Air O2 Sat by Pulse Oximetry: 100 - Blood Pressure Right Arm Supine Blood Pressure: 109/68 Blood Pressure Mean: 81 Blood Pressure Source: Automatic Cuff Medical Screen Scoring - Cervical Exam Membranes: Intact - Assessment - Baby A Baseline FHR: 140 Heart Rate - NICHD Category: Category I (Normal) Physician Notification - Physician Notified Physician Notified Date: 12/07/22 Physician Notified Time: 17:10 Physician: Dr. Tejas Scales Order Received: Yes - Notification Comment Comment: OK to discharge pt home Maternal Triage Index - Scheduled/Requesting Priority 5 Scheduled/Requesting Priority 5: Yes Criteria Met for Priority 5: category 1 FHT Disposition - Disposition OB Disposition: Discharge to home Discharge Date: 12/07/22 Discharge Time: 17:28 I agree with the RN Medical Screening Exam: Yes Case reviewed; plan agreed upon as documented in EMR&OBIX.: Yes Diagnosis: CHEST PAIN, UNSPECIFIED
== END ==
LOC: FBPOP 16:20
PROVIDERS: ATTEND Obstetrics & Gynecology
DX: Z34.92 Encounter for supervision of normal pregnancy, unspecified, second trimester (principal); R07.9 Chest pain, unspecified; Z3A.24 24 weeks gestation of pregnancy; Z91.018 Allergy to other foods; Z88.8 Allergy status to other drugs, medicaments and biological substances
CPT/HCPCS: 99213

== ENCOUNTER → 2023-01-06 | Outpatient (CLI) | payer BC ==
--- NOTE | 2023-01-06 11:18 | CA ---
Transthoracic Echo Report Name: Smitha Seymour Age: 27 Gender: F : 1995 Exam Date: 01/06/2023 10:05 Exam Location: [facility] Ht (in): 65 Wt (lb): 233 Ordering Physician: Gurjit Fuller DO ([email or web address]) Attending/Referring Phys: Occupational Therapy Teacher Medina De Leon [facility] Procedure CPT: Indications: R55 SYNCOPE AND COLLAPSE Cardiac Hx: Technical Quality: Contrast 1: Total Dose (mL): Contrast 2: Total Dose (mL): MEASUREMENTS (Male / Female) Normal Values 2D ECHO LV Diastolic Diameter PLAX 4.3 cm 4.2 - 5.9 / 3.9 - 5.3 cm LV Systolic Diameter PLAX 2.9 cm IVS Diastolic Thickness 0.8 cm 0.6 - 1.0 / 0.6 - 0.9 cm LVPW Diastolic Thickness 1.0 cm 0.6 - 1.0 / 0.6 - 0.9 cm LV Relative Wall Thickness 0.4 Ascending Aorta Diameter 2.8 cm M-MODE Aortic Root Diameter MM 2.7 cm LA Systolic Diameter MM 3.7 cm LA Ao Ratio MM 1.4 AV Cusp Separation MM 2.2 cm DOPPLER AV Peak Velocity 131.0 cm/s AV Peak Gradient 6.9 mmHg AV Mean Velocity 92.7 cm/s AV Mean Gradient 3.7 mmHg AV Velocity Time Integral 22.8 cm LVOT Peak Velocity 100.4 cm/s LVOT Peak Gradient 4.0 mmHg LVOT Velocity Time Integral 18.2 cm Mitral E Point Velocity 73.2 cm/s Mitral A Point Velocity 61.5 cm/s Mitral E to A Ratio 1.2 MV Deceleration Time 166.3 ms LV E' Lateral Velocity 11.8 cm/s Mitral E to LV E' Lateral Ratio 6.2 LV E' Septal Velocity 8.8 cm/s Mitral E to LV E' Septal Ratio 8.3 Right Atrial Pressure 3.0 mmHg FINDINGS Left Ventricle Normal Left ventricular size, wall thickness, systolic function with no obvious regional wall motion abnormalities. Normal Left ventricular diastolic filling pattern. Left ventricular ejection fraction is estimated at 55-60%. Right Ventricle Normal right ventricular size and function. Unable to estimate the right ventricular systolic pressure. Right Atrium Normal right atrial size. Left Atrium Normal left atrial size. Mitral Valve Structurally normal mitral valve. Trace mitral regurgitation. Aortic Valve Trileaflet aortic valve. No aortic valve stenosis or regurgitation. Tricuspid Valve Structurally normal tricuspid valve. Trace tricuspid regurgitation. Pulmonic Valve Structurally normal pulmonic valve. Trace pulmonic regurgitation. Pericardium Minimal pericardial effusion (normal variant). Aorta Normal size aortic root and proximal ascending aorta. CONCLUSIONS 1. Normal left ventricle size and systolic function 2. Trace mitral and tricuspid regurgitation Previewed by: Dr. Mini Javier MD (Electronically Signed) Final Date: 06 January 2023 11:17
== END | disposition home or self-care (01) ==
LOC: RADECHMAIN 09:53
PROVIDERS: ATTEND Internal Medicine
DX: I08.1 Rheumatic disorders of both mitral and tricuspid valves (principal); R55 Syncope and collapse
CPT/HCPCS: 93306

== ENCOUNTER 2023-02-10 19:42 | Emergency (ER) | payer BC ==
[2023-02-10 20:01] VITALS: TEMP 98.2
[2023-02-10 21:48] VITALS: BP 121/78; PULSE 107; RESP 18
--- NOTE | 2023-02-10 22:08 | ED ---
Fall HPI - General Chief Complaint: Fall Stated Complaint: Fall, 35wks preg Time Seen by Provider: 02/10/23 21:24 Source: patient, RN notes reviewed, old records reviewed Mode of arrival: wheelchair Limitations: no limitations - History of Present Illness Initial Comments: This is a 27-year-old female to the ER today for evaluation patient presented for evaluation of abdominal pain. She is a day and a half half out of abdominal pain and trauma after fall. Patient has a little fluid leakage no bleeding of persistent abdominal pain either making difficult to walk and she is concerned that she may be having some cramping or contractions. Patient does admit to some anxiety from this. 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 Fall Witnessed: no Place Fall Occurred: home Loss of Consciousness: none Prolonged Down Time?: no Symptoms Prior to Fall: none Severity: mild Severity scale (1-10): 2 Context: tripped/slipped Associated Symptoms: denies - Related Data Home Medications Medication Instructions Recorded Confirmed Ondansetron Odt [Zofran ODT] 4 mg PO Q4HR PRN 02/11/23 02/14/23 Vit No.179/Iron/Folic 1 tab PO DAILY 02/11/23 02/14/23 [ Tablet] Allergies Allergy/AdvReac Type Severity Reaction Status Date / Time lemon Allergy Rash/Hives Verified 02/14/23 04:18 lemon oil Allergy Rash/Hives Verified 02/14/23 04:18 metoclopramide [From Reglan] Allergy Rash/Hives Verified 02/14/23 04:18 adhesive tape AdvReac Rash/Hives Verified 02/14/23 04:18 Review of Systems ROS Statement: Those systems with pertinent positive or pertinent negative responses have been documented in the HPI. ROS Other: All systems not noted in ROS Statement are negative. Past Medical History Past Medical History: No Reported History Additional Past Medical History / Comment(s): ovarian cysts. mononucleosis, hyperemesis History of Any Multi-Drug Resistant Organisms: None Reported Past Surgical History: Adenoidectomy, Cardiac Ablation, Section, Tonsillectomy Past Anesthesia/Blood Transfusion Reactions: No Reported Reaction Past Psychological History: No Psychological Hx Reported Smoking Status: Former smoker - Past Family History Mother Additional Family Medical History / Comment(s): bipolar, depressed Father History Unknown: Yes General Exam Limitations: no limitations General appearance: alert, in no apparent distress Head exam: Present: atraumatic, normocephalic, normal inspection Eye exam: Present: normal appearance, PERRL, EOMI. Absent: scleral icterus, conjunctival injection, periorbital swelling ENT exam: Present: normal exam, mucous membranes moist Neck exam: Present: normal inspection. Absent: tenderness, meningismus, lymphadenopathy Respiratory exam: Present: normal lung sounds bilaterally. Absent: respiratory distress, wheezes, rales, rhonchi, stridor Cardiovascular Exam: Present: regular rate, normal rhythm, normal heart sounds. Absent: systolic murmur, diastolic murmur, rubs, gallop, clicks GI/Abdominal exam: Present: soft, normal bowel sounds. Absent: distended, tenderness, guarding, rebound, rigid Extremities exam: Present: normal inspection, full ROM, normal capillary refill. Absent: tenderness, pedal edema, joint swelling, calf tenderness Back exam: Present: normal inspection Neurological exam: Present: alert, oriented X3, CN II-XII intact Psychiatric exam: Present: normal affect, normal mood Skin exam: Present: warm, dry, intact, normal color. Absent: rash Course Vital Signs 02/10/23 02/10/23 19:57 21:34 Temperature 98.2 F Pulse Rate 95 107 H Respiratory 20 18 Rate Blood Pressure 117/74 121/78 O2 Sat by Pulse 95 97 Oximetry - Reevaluation(s) Reevaluation #1: 02/10/23 22:47 Medical record is reviewed Reevaluation #2: 02/11/23 00:12 Patient has no change in symptoms Reevaluation #3: 02/11/23 00:12 Patient for results questions answered Reevaluation #4: 02/10/23 22:47 Was pt. sent in by a medical professional or institution (, PA, WEB MANAGER, urgent care, hospital, or [facility]...) When possible be specific @ -no Did you speak to anyone other than the patient for history (EMS, parent, family, police, friend...)? What history was obtained from this source @ -no Did you review nursing and triage notes (agree or disagree)? Why? @ -agree Are old charts reviewed (outside hosp., previous admission, EMS record, old EKG, old radiological studies, urgent care reports/EKG's, [facility] records)? Report findings @ -yes Differential Diagnosis (chest pain, altered mental status, abdominal pain women, abdominal pain men, vaginal bleeding, weakness, fever, dyspnea, syncope, headache, dizziness, GI bleed, back pain, seizure, CVA, palpatations, mental health, musculoskeletal)? @ -prior EKG interpreted by me (3pts min.). @ -no X-rays interpreted by me (1pt min.). @ -no CT interpreted by me (1pt min.). @ -no U/S interpreted by me (1pt. min.). @ -yes What testing was considered but not performed or refused? (CT, X-rays, U/S, labs)? Why? @ -none What meds were considered but not given or refused? Why? @ -none Did you discuss the management of the patient with other professionals (professionals i.e. , PA, WEB MANAGER, lab, RT, psych nurse, psychosocial rehabilitation counselor, agency sales management assistant, teacher, marketing officer, piano case maker)? Give summary @ -no Was smoking cessation discussed for >3mins.? @ -no Was critical care preformed (if so, how long)? @ -no Were there social determinants of health that impacted care today? How? (Homelessness, low income, unemployed, alcoholism, drug addiction, transportation, low edu. Level, literacy, decrease access to med. care, prison, rehab)? @ -none Was there de-escalation of care discussed even if they declined (Discuss DNR or withdrawal of care, Hospice)? DNR status @ -no What co-morbidities impacted this encounter? (DM, HTN, Smoking, COPD, CAD, Cancer, CVA, ARF, Chemo, Hep., AIDS, mental health diagnosis, sleep apnea, morbid obesity)? @ -none Was patient admitted / discharged? Hospital course, mention meds given and route, prescriptions, significant lab abnormalities, going to OR and other pertinent info. @ - 27 female to the emergency department for evaluation of fall abdominal trauma 33-34 weeks . Patient has normal gestational ultrasound here in the ER with positive IUP patient will be discharged to go to OB for nonstress testing Discharge Undiagnosed new problem with uncertain prognosis? @ -no Drug Therapy requiring intensive monitoring for toxicity (Heparin, Nitro, Insulin, Cardizem)? @ -no Were any procedures done? @ -no Diagnosis/symptom? @ -Fall and abdominal pain and Acute, or Chronic, or Acute on Chronic? @ -Acute Uncomplicated (without systemic symptoms) or Complicated (systemic symptoms)? @ -Complicated Side effects of treatment? @ -no Exacerbation, Progression, or Severe Exacerbation? @ -exacerbation Poses a threat to life or bodily function? How? (Chest pain, [place], [place], pneumonia, PE, COPD, DKA, ARF, appy, cholecystitis, CVA, Diverticulitis, Homicidal, Suicidal, threat to staff... and all critical care pts) @ -yes with significant fall during Reevaluation #5: 02/10/23 22:47 Differential Abdominal Pain Women: Appendicitis, Cholecystitis, diverticulosis, ischemic bowel, pancreatitis, hepatitis, UTI, gastroenteritis, AAA, incarcerated hernia, bowel obstruction, constipation, inflammatory bowel, hepatitis, peptic ulcer disease, splenic infarction, perforated viscus, vulvitis, ovarian torsion, PID, kidney stone, placenta abruption, this is not meant to be an all-inclusive list Medical Decision Making - Medical Decision Making 27 female to the emergency department for evaluation of fall abdominal trauma 33-34 weeks . Patient has normal gestational ultrasound here in the ER with positive IUP patient will be discharged to go to OB for nonstress testing - Lab Data Lab Results 02/10/23 Range/Units 22:14 Urine Color Yellow Urine Appearance Cloudy H (Clear) Urine pH 7.0 (5.0-8.0) Ur Specific [place] 1.022 (1.001-1.035) Urine Protein 1+ H (Negative) Urine Glucose (UA) Negative (Negative) Urine Ketones Negative (Negative) Urine Blood Negative (Negative) Urine Nitrite Negative (Negative) Urine Bilirubin Negative (Negative) Urine Urobilinogen <2.0 (<2.0) mg/dL Ur Leukocyte Esterase Small H (Negative) Urine RBC 1 (0-5) /hpf Urine WBC 24 H (0-5) /hpf Ur Squamous Epith Cells 5 H (0-4) /hpf Urine Bacteria Many H (None) /hpf Hyaline Casts 3 H (0-2) /lpf Urine Mucus Few H (None) /hpf - Radiology Data Radiology results: report reviewed (Ultrasound positive IUP), image reviewed Disposition Clinical Impression: Fall, , Abdominal pain Disposition: HOME SELF-CARE Condition: Good Instructions (If sedation given, give patient instructions): Abdominal Pain in (ED) Is patient prescribed a controlled substance at d/c from ED?: No Referrals: Alon Oakes MD [Primary Care Provider] - 1-2 days Time of Disposition: 00:10
[2023-02-10 22:55] LABS: Appearance,Urine Cloudy (Clear); Bacteria,Urine Many /hpf; Bilirubin,Urine Negative (Negative); Blood,Urine Negative (Negative); Color,Urine Yellow; Glucose,Urine (UA) Negative (Negative); Hyaline Casts,Urine 3 /lpf (0-2); Ketones,Urine Negative (Negative); Leukocyte Esterase,Urine Small (Negative); Mucus,Urine Few /hpf; Nitrite,Urine Negative (Negative); Protein,Urine 1+ (Negative); RBC,Urine 1 /hpf (0-5); Specific Gravity,Urine 1.022 (1.001-1.035); Squamous Epithelial Cell,Urine 5 /hpf (0-4); Urobilinogen,Urine <2.0 mg/dL (<2.0); WBC,Urine 24 /hpf (0-5)
--- NOTE | 2023-02-10 23:30 | US ---
EXAM: US , Transvaginal CLINICAL HISTORY: ITS.REASON US Reason: fall TECHNIQUE: Real-time endovaginal obstetrical ultrasound of the maternal pelvis and second or third trimester with image documentation. Endovaginal imaging was used for better evaluation of the fetus and adnexa. COMPARISON: 09/08/2022. FINDINGS: Fetus: Single viable intrauterine gestation is noted. Single viable intrauterine gestation corresponding to a composite gestational age of 33 weeks 1 day. Heart rate: heart rate is 121 bpm. Presentation: Fetus is in vertex presentation. Placenta: Placenta is noted posteriorly without previa. Suboptimal evaluation of the placenta due to bowel gas. Amniotic fluid: AUTUMN is 10.8 cm. Anatomy: See below. BIOMETRICS ARTI: Estimated date of delivery by today's study is 03/29/2022. EFW: Estimated weight is 2255 g 338.32 g. BPD: Biparietal diameter 8.2 cm corresponding to 33 weeks 0 days. HC: Head circumference 30.06 cm corresponding to 33 weeks 2 days. AC: Abdominal circumference 30.04 cm corresponding to 34 weeks 0 days. FL: Femur length 6.5 cm corresponding to 33 weeks 2 days. MATERNAL: Uterus: Unremarkable. No myometrial mass. Cervix: Cervix measures 3.1 cm. Free fluid: No free fluid. IMPRESSION: 1. Single viable intrauterine gestation corresponding to a composite gestational age of 33 weeks 1 day. 2. Estimated date of delivery by today's study is 03/29/2022.
== END 2023-02-11 00:25 | disposition home or self-care (01) ==
LOC: EC 19:42
DX: O9A.213 Injury, poisoning and certain other consequences of external causes complicating pregnancy, third trimester (principal); S39.91XA Unspecified injury of abdomen, initial encounter; Z3A.33 33 weeks gestation of pregnancy; Z87.891 Personal history of nicotine dependence; W01.0XXA Fall on same level from slipping, tripping and stumbling without subsequent striking against object, initial encounter; Z91.018 Allergy to other foods; Z88.8 Allergy status to other drugs, medicaments and biological substances
CPT/HCPCS: 76805; 81001; 99284

== ENCOUNTER 2023-02-11 00:34 | Outpatient (CLI) | payer BC ==
[2023-02-11 02:09] VITALS: BP 132/85; PULSE 90; RESP 17; TEMP 97.1
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
== END 2023-02-11 01:23 | disposition home or self-care (01) ==
LOC: FBPOP 00:34
PROVIDERS: ATTEND Obstetrics & Gynecology
DX: O26.893 Other specified pregnancy related conditions, third trimester (principal); O9A.213 Injury, poisoning and certain other consequences of external causes complicating pregnancy, third trimester; R10.2 Pelvic and perineal pain; Z3A.33 33 weeks gestation of pregnancy; Z91.048 Other nonmedicinal substance allergy status; Z88.8 Allergy status to other drugs, medicaments and biological substances; Z91.018 Allergy to other foods; Z91.02 Food additives allergy status; W18.30XA Fall on same level, unspecified, initial encounter
CPT/HCPCS: 59025; 84112; 99213

== ENCOUNTER 2023-03-21 01:38 | Outpatient (CLI) | payer BC ==
[2023-03-21 03:26] VITALS: BP 142/78; PULSE 104; RESP 16; TEMP 96.6
== END 2023-03-21 03:00 | disposition home or self-care (01) ==
LOC: FBPOP 01:38
PROVIDERS: ATTEND Obstetrics & Gynecology
DX: Z53.9 Procedure and treatment not carried out, unspecified reason (principal)
CPT/HCPCS: 59025; 84112; 99213

== ENCOUNTER 2023-03-26 06:04 | Inpatient (IN) | payer BC ==
[2023-03-23 16:43] VITALS: BMI 38.6
--- NOTE | 2023-03-25 15:22 | P.HPOB ---
History of Present Illness H&P Date: 03/25/23 Chief Complaint: Repeat section with tubal ligation This is a 27 y.o. female, 2, para 1, with an estimated date of confinement of 03/28/2023, estimated gestational age of 1003/28/2023, who presents for repeat section with bilateral partial salpingectomy for family planning. Her has been complicated by nausea & vomiting, dizziness and back pain. She was seen by cardiology and workup was negative. labs: Hemoglobin-13.4 Blood type-O+ Antibody screen-neg Rubella-immune Toxoplasma-neg RPR-NR HIV-NR Hepatitis C-neg Random glucose-86 Hepatitis B surface antigen-neg GC/Chlamydia/Trich-neg [id number] 1 hr. GTT-100 GBS-neg OB Hx: . History of delivery due to distress and failed induction. 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 Social Hx: Marries. 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 Review of Systems Constitutional: Denies chills, Denies fever Eyes: denies blurred vision, denies pain Ears, nose, mouth and throat: Denies headache, Denies sore throat Cardiovascular: Reports chest pain, Reports palpitations, Reports shortness of breath Respiratory: Denies cough Gastrointestinal: Reports abdominal pain (irregular contractions), Reports heartburn Genitourinary: Reports pelvic pain, Reports Musculoskeletal: Reports low back pain, Reports myalgias Integumentary: Denies pruritus, Denies rash Neurological: Reports migraines, Denies numbness, Denies weakness Psychiatric: Reports difficulty concentrating Past Medical History Additional Past Medical History / Comment(s): irregular heart beat on EKG- followed with Dr Fuller, hx ovarian cysts-teens, mononucleosis, hyperemesis History of Any Multi-Drug Resistant Organisms: None Reported Past Surgical History: Adenoidectomy, Section, Tonsillectomy Past Anesthesia/Blood Transfusion Reactions: Postoperative Nausea & Vomiting (PONV) Additional Past Anesthesia/Blood Transfusion Reaction / Comment(s): no hx blood transfusion Past Psychological History: ADD/ADHD Smoking Status: Former smoker Past Alcohol Use History: None Reported Past Drug Use History: Marijuana - Past Family History Mother Additional Family Medical History / Comment(s): bipolar, depressed Father History Unknown: Yes Medications and Allergies Home Medications Medication Instructions Recorded Confirmed Type Ondansetron Odt [Zofran ODT] 4 mg PO BID PRN 02/11/23 03/26/23 History Vit No.179/Iron/Folic 1 tab PO DAILY 02/11/23 03/26/23 History [ Tablet] Allergies Allergy/AdvReac Type Severity Reaction Status Date / Time lemon Allergy Rash/Hives Verified 03/23/23 16:17 lemon oil Allergy Rash/Hives Verified 03/23/23 16:17 metoclopramide [From Reglan] Allergy Rash/Hives Verified 03/23/23 16:17 adhesive tape AdvReac Rash/Hives Verified 03/23/23 16:17 Exam Osteopathic Statement: *. No significant issues noted on an osteopathic structural exam other than those noted in the History and Physical/Consult. HEENT: within normal limits Heart: regular rate and rhythm Lungs: cler to auscultation bilaterally Abdomen: , non-tender Cervix: 1.5 cm/60%/-2 heart tones: 140's by doppler Extremities: neg. Juan's Results Result Diagrams: 03/26/23 06:25 Assessment and Plan (1) 39 weeks gestation of Current Visit: No Status: Acute Code(s): Z3A.39 - 39 WEEKS GESTATION OF SNOMED Code(s): 61484270 (2) Previous delivery affecting Current Visit: No Status: Acute Code(s): O34.219 - MATERNAL CARE FOR UNSP TYPE SCAR FROM PREVIOUS DEL SNOMED Code(s): 473963712 (3) Family planning Current Visit: No Status: Acute Code(s): Z30.09 - ENCOUNTER FOR OTH GENERAL CNSL AND ADVICE ON CONTRACEPTION SNOMED Code(s): 471162350 Plan: Proceed with repeat low transverse section with bilateral partial salpingectomy. I have discussed the risks, benefits, and alternative therapies for the above- mentioned procedure and for both sedation/anesthesia as well as necessary blood products administration, if indicated, as they pertain to this patient. The patient has indicated her understanding and acceptance of the risks and procedures discussed.
[2023-03-26] MEDS ORDERED: OXYTOCIN 30 UNITS/500 ML NS 30 UNIT in SALINE 1 500ML.BAG IV SCH ×2 (06:05→09:49)
[2023-03-26] MEDS ORDERED: CARBOPROST TROMETHAMINE 250 MCG/ML 1 ML AMP IM PRN (06:05)
[2023-03-26] MEDS ORDERED: METHYLERGONOVINE 0.2 MG/ML 1 ML AMP IM PRN (06:05)
[2023-03-26] MEDS ORDERED: LACTATED RINGERS 1,000 ML IV SCH (06:05)
[2023-03-26] MEDS ORDERED: TRANEXAMIC 1,000 MG/100ML-NACL 1,000 MG in EMPTY BAG 1 BAG IV PRN (06:05)
[2023-03-26] MEDS ORDERED: LACTATED RINGERS 1,000 ML IV ONE (06:05)
[2023-03-26] MEDS ORDERED: CITRIC ACID-SODIUM CITRATE 15 ML CUP PO ONE (06:05)
[2023-03-26] MEDS ORDERED: OXYTOCIN 10 UNIT/ML 1 ML VIAL IM PRN (06:05)
[2023-03-26] MEDS ORDERED: LIDOCAINE 1% (10MG/ML) FOR IV START INTRADERMA PRN (06:05)
[2023-03-26] MEDS ORDERED: miSOPROStoL 200 MCG TAB PO PRN (06:05)
[2023-03-26 06:30] VITALS: RESP 16
[2023-03-26 06:36] LABS: Basophils % (A) 0 %; Eosinophils # (A) 0.1 k/uL (0-0.7); Eosinophils % (A) 1 %; HCT 34.3 % (34.0-46.0); HGB 11.3 gm/dL (11.4-16.0); Hypochromasia Slight; Lymphocytes # (A) 1.9 k/uL (1.0-4.8); Lymphocytes % (A) 18 %; MCH 28.1 pg (25.0-35.0); Mean Platelet Volume 7.8; Monocytes # (A) 0.7 k/uL (0-1.0); Monocytes % (A) 6 %; Neutrophils # (A) 7.8 k/uL (1.3-7.7); Neutrophils % (A) 73 %; Platelet Count 239 k/uL (150-450); Poikilocytosis Slight; RBC 4.04 m/uL (3.80-5.40); RDW 15.7 % (11.5-15.5); WBC 10.6 k/uL (3.8-10.6)
[2023-03-26] MEDS ORDERED: OXYTOCIN 30 UNITS/500 ML NS BAG IV ONE (08:28)
[2023-03-26] MEDS ORDERED: MORPHINE SULFATE (PF) 0.3 MG/0.3 ML SYR ONE (08:28)
[2023-03-26] MEDS ORDERED: KETOROLAC 15 MG/ML 1 ML VIAL ONE (08:28)
[2023-03-26] MEDS ORDERED: NALBUPHINE 10 MG/ML (10 ML MDV) IV PRN (08:51)
[2023-03-26] MEDS ORDERED: HYDROmorphone 0.5 MG/0.5 ML SYRINGE IVP PRN ×2 (08:51→09:49)
[2023-03-26] MEDS ORDERED: NALOXONE 0.4 MG/ML 1 ML VIAL IV PRN ×2 (08:51→09:49)
[2023-03-26] MEDS ORDERED: ONDANSETRON 4 MG/2 ML VIAL IVP PRN ×2 (08:51→09:49)
--- NOTE | 2023-03-26 09:08 | P.OP ---
Date of Procedure: 03/26/23 Preoperative Diagnosis: 1. Intrauterine at 39-5/7 weeks. 2. History of previous section. 3. Family-planning. Postoperative Diagnosis: Same Procedure(s) Performed: Repeat low transverse section with bilateral partial salpingectomy Anesthesia: spinal (Duramorph) Surgeon: Marleen Chau Car Shagger #1: Joel Souza Estimated Blood Loss (ml): 500 Pathology: other (Portions of right and left fallopian tubes) Condition: stable Disposition: floor Indications for Procedure: This is a 27-year-old female 2 para 1 at 39-5/7 weeks who presents for scheduled repeat low transverse section with bilateral partial luis pingectomy. I have discussed the risks, benefits, and alternative therapies for the above- mentioned procedure and for both sedation/anesthesia as well as necessary blood products administration, if indicated, as they pertain to this patient. The patient has indicated her understanding and acceptance of the risks and procedures discussed. Operative Findings: A viable female infant is noted in the vertex presentation with scores of 9 at 1 minute and 9 at 5 minutes and weight of 9 lbs. 4 oz. Normal uterus tubes and ovaries are noted. Description of Procedure: The patient is taken to the operating room where she is placed in the dorsal supine position with leftward tilt after spinal Duramorph anesthesia is given. She is prepped and draped in the normal sterile fashion. Skin was tested and found to be adequately anesthetized. A Pfannenstiel skin incision was made with a scalpel through the previous laparotomy scar. A second knife was used to carry the incision down to the underlying layer of fascia. The fascia was nicked in the midline with a scalpel and then extended laterally bilaterally with Muniz scissors. The anterior lip of the fascia was grasped with 2 Mariano clamps and then dissected off the underlying rectus muscle in the midline with Muniz scissors. The inferior aspect of the fascial incision was grasped with 2 Mariano clamps and dissected off the underlying rectus muscle and the midline with Muniz scissors. Next the peritoneum layer was tented up with 2 hemostats and then entered sharply with the scalpel. The incision is extended superiorly and inferiorly with Metzenbaum scissors. Next a DeLee retractor is placed. The vesicouterine peritoneum is entered sharply with Metzenbaum scissors and extended laterally bilaterally with Metzenbaum scissors and then the bladder flap is pushed inferiorly. The lower uterine segment is incised in transverse fashion with the scalpel and then bluntly entered with a hemostat. Clear fluid is noted. The incision was then extended laterally bilaterally with 2 fingers. Next the infant's head is delivered through the incision. Nose and mouth are bulb suctioned. The remainder of the infant is easily delivered and placed on mother's abdomen. Cord is clamped and cut. Infant is taken to warmer by nursing staff. Uterine fundus is gently massaged and placenta is delivered manually. Uterus is exteriorized and cleared of all clots and debris. Uterine incision is closed with 0 Vicryl suture in a running locked fashion. A second layer of 0 Vicryl suture is used in a running fashion for hemostasis. Once adequate hemostasis as assured, the vesicouterine peritoneum is reapproximated with 2-0 Vicryl suture in a running fashion. Posterior cul-de-sac is suctioned of all clots and debris. Attention is turned to the fallopian tubes. The right fallopian tube is grasped with a hemostat. Mesosalpinx is entered with Bovie cautery. 0 Vicryl suture is tied 2 times around both the proximal and distal portion of the tube. A knuckle of tube was then removed with Metzenbaum scissors. The ends of the tubes are then cauterized with Bovie cautery. Good hemostasis is noted. The same procedure is carried out on the left fallopian tube. Uterus is returned to the abdomen. Incision is noted to be hemostatic. Both tubal sites are noted to be hemostatic. Peritoneal layer is closed with 0 Vicryl suture in a running fashion. Muscle layer is reapproximated with 0 Vicryl suture in interrupted fashion. Fascia layer is then closed with 0 PDS s uture with 2 sutures meeting in the midline and the knots buried in either side and in the midline. The subcutaneous tissue was then closed with 2-0 Vicryl suture. Skin layer was then closed with ayse. All sponge and needle counts are correct. The patient is taken to recovery room in stable condition.
[2023-03-26] MEDS ORDERED: METOCLOPRAMIDE 5 MG/ML 2 ML VIAL IVP PRN (09:49)
[2023-03-26] MEDS ORDERED: ZOLPIDEM 5 MG TAB PO PRN (09:49)
[2023-03-26] MEDS ORDERED: SIMETHICONE 80 MG CHEWABLE PO PRN (09:49)
[2023-03-26] MEDS ORDERED: LANOLIN CREAM 5 GM TUBE TOPICAL PRN (09:49)
[2023-03-26] MEDS ORDERED: HYDROmorphone 1 MG/ML 1 ML SYRINGE IVP PRN (09:49)
[2023-03-26] MEDS ORDERED: diphenhydrAMINE 50 MG CAP PO PRN (09:49)
[2023-03-26] MEDS ORDERED: diphenhydrAMINE 25 MG CAP PO PRN (09:49)
[2023-03-26] MEDS ORDERED: diphenhydrAMINE 50 MG/ML 1 ML VIAL IVP PRN ×2 (09:49)
[2023-03-26] MEDS: LACTATED RINGERS 1,000 ML IV SCH ×2 (10:21→23:09)
[2023-03-26] MEDS: PRENATAL VIT-IRON-FOLIC ACID 1 EACH TABLET PO SCH (17:58)
[2023-03-26] MEDS: ACETAMINOPHEN TAB 500 MG TAB PO SCH ×2 (18:53→19:49)
[2023-03-26] MEDS: ACETAMINOPHEN IV (For NPO) 1,000 MG in EMPTY BAG 1 BAG IVPB SCH ×2 (19:48→19:49)
[2023-03-26] MEDS: SENNOSIDES-DOCUSATE SODIUM 1 EACH TAB PO SCH ×2 (19:48→20:18)
[2023-03-26] MEDS: IBUPROFEN 600 MG TAB PO SCH ×2 (19:49→23:09)
[2023-03-26] MEDS: KETOROLAC 15 MG/ML 1 ML VIAL IVP SCH ×2 (20:14→22:54)
[2023-03-27] MEDS: ACETAMINOPHEN TAB 500 MG TAB PO SCH ×3 (01:12→15:48)
[2023-03-27] MEDS: KETOROLAC 15 MG/ML 1 ML VIAL IVP SCH ×4 (04:14→20:21)
[2023-03-27] MEDS: LACTATED RINGERS 1,000 ML IV SCH ×2 (04:15→20:19)
[2023-03-27] MEDS: IBUPROFEN 600 MG TAB PO SCH ×5 (04:15→20:20)
--- NOTE | 2023-03-27 08:24 | P.PN ---
Progress Note - Text Progress Note Date: 03/27/23 (2018) Anesthesia Postop day 1 Subjective: Status Post section with Duramorph. Patient seen and examined. Doing well without complaint. VAS 0. No nausea or vomiting. Mild pruritus tolerable.. Afebrile. Gross lower extremity strength intact. Without apparent anesthetic complications. Objective: Vital signs reviewed Heart: Regular Rate Lungs: Good chest excursion Abdomen: Appears nondistended Assessment: Status post with Duramorph postop day 1 Plan: Continue current care with your medical management. Anticipated and the Duramorph section around time today. You may see increased pain needs around this time.
[2023-03-27] MEDS: SENNOSIDES-DOCUSATE SODIUM 1 EACH TAB PO SCH ×2 (08:31→20:15)
--- NOTE | 2023-03-27 08:54 | P.PNOBGPC ---
Subjective - Subjective Principal diagnosis: Status post repeat with tubal postoperative day #1 Interval history: Patient is doing well. She is ambulating. She is passing flatus but no bowel movement yet. She is breast-feeding. Lochia has been decreasing. She did pass a couple clots yesterday but has slowed today. Patient reports: Reports appetite normal, Reports voiding normally, Reports pain well controlled, Reports ambulating normally : doing well, nursing well Objective - Vital Signs Latest vital signs: Vital Signs Temp Pulse Resp BP Pulse Ox 03/27/23 08:19 97 03/27/23 08:00 97.5 F L 89 16 114/72 03/27/23 07:58 16 03/27/23 04:15 97.9 F 84 16 127/77 96 03/27/23 00:00 97.9 F 83 16 111/70 96 03/26/23 22:49 16 03/26/23 21:51 96 03/26/23 20:34 97.5 F L 90 16 114/70 96 03/26/23 17:52 16 97 03/26/23 16:00 98.0 F 86 16 114/49 97 03/26/23 13:51 97 03/26/23 13:00 97.2 F L 77 16 140/65 03/26/23 11:26 88 16 116/64 98 03/26/23 11:00 96.3 F L 78 16 122/68 03/26/23 10:30 88 16 117/78 97 03/26/23 10:10 74 16 110/64 03/26/23 09:55 75 16 110/65 03/26/23 09:40 76 16 116/71 97 03/26/23 09:25 97.2 F L 99 16 115/65 Intake and Output 03/26/23 03/27/23 03/27/23 22:59 06:59 14:59 Output Total 1100 900 Balance -1100 -900 Output: Urine 1100 900 Uretheral (Benedict) 500 Other: # Voids 1 1 - Exam Extremities: Present: normal. Absent: tenderness, edema Abdomen: Present: normal appearance, soft (Positive bowel sounds 4). Absent: distention, tenderness Incision: Present: normal, dry, intact. Absent: erythematous Uterus: Present: normal, firm. Absent: tenderness Assessment and Plan Assessment: Status post repeat low transverse section with bilateral partial salpingectomy postoperative day #1 (1) 39 weeks gestation of Current Visit: No Status: Acute Code(s): Z3A.39 - 39 WEEKS GESTATION OF SNOMED Code(s): 71932438 (2) Previous delivery affecting Current Visit: No Status: Acute Code(s): O34.219 - MATERNAL CARE FOR UNSP TYPE SCAR FROM PREVIOUS DEL SNOMED Code(s): 934831705 (3) Family planning Current Visit: No Status: Acute Code(s): Z30.09 - ENCOUNTER FOR OT GENERAL CNSL AND ADVICE ON CONTRACEPTION SNOMED Code(s): 871468799 Plan: Continue with postoperative and care today. Will advance diet as tolerated. May shower.
[2023-03-27 09:08] LABS: Basophils # (A) 0.1 k/uL (0-0.2); Basophils % (A) 0 %; Eosinophils # (A) 0.1 k/uL (0-0.7); Eosinophils % (A) 1 %; HCT 32.8 % (34.0-46.0); HGB 10.7 gm/dL (11.4-16.0); Hypochromasia Moderate; Lymphocytes % (A) 17 %; MCH 28.9 pg (25.0-35.0); MCHC 32.6 g/dL (31.0-37.0); MCV 88.6 fL (80.0-100.0); Mean Platelet Volume 7.8; Monocytes # (A) 0.8 k/uL (0-1.0); Monocytes % (A) 7 %; Neutrophils # (A) 8.7 k/uL (1.3-7.7); Neutrophils % (A) 74 %; Platelet Count 220 k/uL (150-450); RBC 3.71 m/uL (3.80-5.40); RDW 15.8 % (11.5-15.5); WBC 11.8 k/uL (3.8-10.6)
[2023-03-27] MEDS: PRENATAL VIT-IRON-FOLIC ACID 1 EACH TABLET PO SCH (20:19)
[2023-03-28] MEDS: ACETAMINOPHEN TAB 500 MG TAB PO SCH ×3 (01:19→08:27)
[2023-03-28] MEDS: IBUPROFEN 600 MG TAB PO SCH (04:59)
--- NOTE | 2023-03-28 06:04 | P.DS ---
Providers Date of admission: 03/26/23 06:04 Expected date of discharge: 03/28/23 Attending physician: Marleen Chau Primary care physician: Stated None - Discharge Diagnosis(es) (1) 39 weeks gestation of Current Visit: No Status: Acute (2) Previous delivery affecting Current Visit: No Status: Acute (3) Family planning Current Visit: No Status: Acute Hospital Course: This is a 27-year-old female 2 para 1 at 39-5/7 weeks who presented for scheduled repeat section with tubal ligation. She underwent a bilateral partial salpingectomy along with a repeat low transverse section on 03/26/2023 and delivered a viable female infant with scores of 9 at 1 minute and 9 at 5 minutes and infant weight of 9 lbs. 4 oz. Her and postoperative courses have been uncomplicated. Her pain is been fairly well controlled at this time. Lochia is decreasing. She is breast- feeding well. She is passing flatus but no bowel movement yet. Vital signs are stable. Abdomen is soft with positive bowel sounds 4. Incision is clean dry and intact with ayse in place. Extremities show negative Homans. Impression is status post repeat low transverse section with bilateral partial salpingectomy postoperative day #2. Plan is to discharge home today. Routine postoperative instructions are given. She will be given a prescription for ibuprofen. She is also advised to follow up in the office in 1 week for a postoperative check and in 6 weeks for check. [place] will be removed and Steri-Strips placed prior to discharge. Procedures: Repeat low transverse section with bilateral partial salpingectomy on 03/26/2023 Patient Condition at Discharge: Stable Plan - Discharge Summary Discharge Rx Participant: No New Discharge Prescriptions: New Ibuprofen [Motrin] 600 mg PO Q6H #60 tab Acetaminophen Tab [Tylenol] 1,000 mg PO Q6H tab Continue Vit No.179/Iron/Folic [ Tablet] 1 tab PO DAILY No Action Ondansetron Odt [Zofran ODT] 4 mg PO BID PRN PRN Reason: Nausea Discharge Medication List Ondansetron Odt [Zofran ODT] 4 mg PO BID PRN 02/11/23 [History] Vit No.179/Iron/Folic [ Tablet] 1 tab PO DAILY 02/11/23 [History] Acetaminophen Tab [Tylenol] 1,000 mg PO Q6H tab 03/28/23 [Rx] Ibuprofen [Motrin] 600 mg PO Q6H #60 tab 03/28/23 [Rx] Follow up Appointment(s)/Referral(s): Marleen Chau DO [Doctor of Osteopathic Medicine] - 6 Weeks (PO 04/02/2023 @1:30 Pm PP 05/05/2023 @4:00 Pm) Activity/Diet/Wound Care/Special Instructions: Instructions 1. Do not begin any exercise program for 3 weeks. 2. Do not resume sexual relations for 3 weeks or longer if uncomfortable. 3. You may take tub baths or showers at any time. 4. You may use tampons if desired after 3 weeks. 5. Keep the area of episiotomy (stitches) clean and dry. 6. If you are not nursing, wear a good fitting, supportive bra during the day and limit fluid intake for at least 1 week to prevent breast engorgement. 7. Call the office, [phone], within the next week to make appointment for your 6 week checkup if it has not already been made. 8. Report any of the following occurrences to the doctor promptly: a. Heavy, excessive bleeding b. Chills, fever c. Burning or frequency of urination d. Pain or redness and breasts if nursing e. Increasing pain or swelling in episiotomy (stitches). In addition to the above instructions, the following additional should be followed: 1. No heavy lifting or straining (exercising) until after 6 week checkup. 2. Keep abdominal incision clean and dry: You may wear a dressing if more comfortable. 3. Make office appointment for 10 days after going home or as instructed by her doctor. Discharge Disposition: HOME SELF-CARE
[2023-03-28] MEDS: SENNOSIDES-DOCUSATE SODIUM 1 EACH TAB PO SCH (08:27)
[2023-03-28 08:28] VITALS: BP 118/73; PULSE 87; TEMP 97.7
== END 2023-03-28 11:10 | disposition home or self-care (01) | DRG 785 ==
LOC: 4FBP 06:04
PROVIDERS: ADMIT Obstetrics & Gynecology; ATTEND Obstetrics & Gynecology
DX: O34.211 Maternal care for low transverse scar from previous cesarean delivery (principal); O99.344 Other mental disorders complicating childbirth; Z30.2 Encounter for sterilization; L29.9 Pruritus, unspecified; F90.9 Attention-deficit hyperactivity disorder, unspecified type; Z37.0 Single live birth; Z3A.39 39 weeks gestation of pregnancy; Z87.891 Personal history of nicotine dependence
CPT/HCPCS: 85025; 86850; 86900; 86901

== ENCOUNTER → 2023-11-12 | Outpatient (CLI) | payer BC, OTHER ==
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
== END | disposition home or self-care (01) ==
LOC: RADUSWWP 12:31
PROVIDERS: ATTEND Family Medicine
DX: N94.6 Dysmenorrhea, unspecified (principal)
CPT/HCPCS: 76856

== ENCOUNTER → 2023-11-30 | Outpatient (CLI) | payer BC, OTHER | LOC: WWCWWP 14:37 | PROVIDERS: ATTEND Obstetrics & Gynecology | DX: Z53.9 Procedure and treatment not carried out, unspecified reason (principal) ==

== ENCOUNTER 2023-12-24 11:30 | Emergency (ER) | payer BC, OTHER ==
[2023-12-24 11:37] VITALS: RESP 18; TEMP 97.6
--- NOTE | 2023-12-24 12:03 | ED ---
Abdominal Pain HPI - General Chief Complaint: Abdominal Pain Stated Complaint: dizzy Time Seen by Provider: 12/24/23 11:43 Source: patient, RN notes reviewed Mode of arrival: ambulatory Limitations: no limitations - History of Present Illness Initial Comments: This is a 28-year-old female who presents to the emergency department for abdominal pain. States that over the last couple of days she has been sleeping excessively and feels extremely fatigued. She has also had a pain in the left side of her abdomen that she's been ignoring for the most part. When she woke up this morning she developed a severe pain in the mid to lower abdomen causing her to have a syncopal episode lasting for 4-5 minutes. Denies hitting her head or sustaining any injuries during this event. When she got up she went to use the restroom and states that liquid and blood essentially fell out of the rectum. She feels nauseous and continues to have pain. She has the chills but has not measured any fevers. Denies symptoms like this in the past. MD Complaint: abdominal pain - Related Data Home Medications Medication Instructions Recorded Confirmed Ondansetron Odt [Zofran ODT] 4 mg PO BID PRN 02/11/23 03/26/23 Vit No.179/Iron/Folic 1 tab PO DAILY 02/11/23 03/26/23 [ Tablet] Previous Rx's Medication Instructions Recorded Acetaminophen Tab [Tylenol] 1,000 mg PO Q6H tab 03/28/23 Ibuprofen [Motrin] 600 mg PO Q6H #60 tab 03/28/23 Ketorolac [Toradol] 10 mg PO Q6HR PRN #15 tab 12/24/23 Ondansetron Odt [Zofran Odt] 4 mg PO Q8HR PRN #20 tab 12/24/23 Sulfamethox-Tmp 800-160Mg [Bactrim 1 tab PO Q12HR 7 Days #14 tab 12/24/23 DS 800-160 mg] Allergies Allergy/AdvReac Type Severity Reaction Status Date / Time lemon Allergy Rash/Hives Verified 12/24/23 11:37 lemon oil Allergy Rash/Hives Verified 12/24/23 11:37 metoclopramide [From Reglan] Allergy Rash/Hives Verified 12/24/23 11:37 adhesive tape AdvReac Rash/Hives Verified 12/24/23 11:37 Review of Systems ROS Statement: Those systems with pertinent positive or pertinent negative responses have been documented in the HPI. ROS Other: All systems not noted in ROS Statement are negative. Past Medical History Past Medical History: No Reported History Additional Past Medical History / Comment(s): irregular heart beat on EKG- followed with Dr Fuller, hx ovarian cysts-teens, mononucleosis, hyperemesis, arthritic lower back History of Any Multi-Drug Resistant Organisms: None Reported Past Surgical History: Adenoidectomy, Cardiac Ablation, Section, Tonsillectomy, Tubal Ligation Past Anesthesia/Blood Transfusion Reactions: No Reported Reaction Additional Past Anesthesia/Blood Transfusion Reaction / Comment(s): no hx blood transfusion Past Psychological History: No Psychological Hx Reported Smoking Status: Never smoker Past Drug Use History: None Reported - Past Family History Mother Additional Family Medical History / Comment(s): bipolar, depressed Father History Unknown: Yes General Exam Limitations: no limitations General appearance: alert, in no apparent distress Head exam: Present: atraumatic, normocephalic, normal inspection Respiratory exam: Present: normal lung sounds bilaterally. Absent: respiratory distress, wheezes, rales, rhonchi, stridor Cardiovascular Exam: Present: regular rate, normal rhythm, normal heart sounds. Absent: systolic murmur, diastolic murmur, rubs, gallop, clicks GI/Abdominal exam: Present: soft, tenderness (Lower abdomen), normal bowel sounds. Absent: distended Neurological exam: Present: alert, oriented X3, CN II-XII intact Psychiatric exam: Present: normal affect, normal mood Skin exam: Present: warm, dry, intact, normal color. Absent: rash Course Vital Signs 12/24/23 12/24/23 11:31 15:30 Temperature 97.6 F Pulse Rate 93 72 Respiratory 18 18 Rate Blood Pressure 116/82 126/65 O2 Sat by Pulse 99 99 Oximetry Medical Decision Making - Medical Decision Making This is a 28 year old female who presents to the emergency department for abdominal pain. Was pt. sent in by a medical professional or institution? @ -No Did you speak to anyone other than the patient for history? @ -No Did you review nursing and triage notes? @ -Yes, and I agree, it is accurate with regards to the patient's symptoms. Were old charts reviewed? @ -No Differential Diagnosis? @ -Differential Abdominal Pain Women: Appendicitis, Cholecystitis, diverticulosis, ischemic bowel, pancreatitis, hepatitis, UTI, gastroenteritis, AAA, incarcerated hernia, bowel obstruction, constipation, inflammatory bowel, hepatitis, peptic ulcer disease, splenic in farction, perforated viscus, vulvitis, ovarian torsion, PID, kidney stone, placenta abruption, this is not meant to be an all-inclusive list EKG interpreted by me (3pts min.)? @ -Not obtained X-rays interpreted by me (1pt min.)? @ -Not obtained CT interpreted by me (1pt min.)? @ -Computed tomography scan of the abdomen and pelvis obtained. My interpretation identifies no evidence of bowel wall thickening or free air. U/S interpreted by me (1pt. min.)? @ -Transvaginal ultrasound obtained. My interpretation identifies no evidence of ovarian torsion. What testing was considered but not performed? (CT, X-rays, U/S, labs)? Why? @ -None What meds were considered but not given? Why? @ -None Did you discuss the management of the patient with other professionals? @ -No Did you reconcile home meds? @ -No Was smoking cessation discussed for >3mins.? @ -No Was critical care preformed (if so, how long)? @ -No Were there social determinants of health that impacted care today? How? (Homelessness, low income, unemployed, alcoholism, drug addiction, transportation, low edu. Level, literacy, decrease access to med. care, skilled nursing, rehab)? @ -No Was there de-escalation of care discussed even if they declined? (Discuss DNR or withdrawal of care, Hospice)? @ -No What co-morbidities impacted this encounter? (DM, HTN, Smoking, COPD, CAD, Cancer, CVA, Hep., AIDS, mental health diagnosis, sleep apnea, morbid obesity)? @ -None Was patient admitted / discharged? @ -Discharged. lab work unremarkable. Urinalysis suggestive of infection and urine was sent for culture. Computed tomography scan of the abdomen and pelvis obtained demonstrating a left ovarian cyst and a 1 mm appendicolith. Appendix was otherwise within normal limits. Based on the ovarian cysts, transvaginal ultrasound was obtained. This demonstrates a 2.1 cm cystic lesion with echo/reticulations in the left ovary suggestive of a hemorrhagic cyst/corpus luteum. Findings reviewed with the patient. Symptoms well controlled in the emergency department. Rx for Toradol and Zofran provided. Also discussed warm compresses. Bactrim prescribed as well for the UTI. Patient discharged home in stable condition and given strict return parameters as well as advised to have close follow-up with her PCP. Undiagnosed new problem with uncertain prognosis? @ -None Drug Therapy requiring intensive monitoring for toxicity (Heparin, Nitro, Insulin, Cardizem)? @ -None Were any procedures done? @ -None Diagnosis/symptom? @ -Abdominal pain, hemorrhagic ovarian cyst, UTI Acute, or Chronic, or Acute on Chronic? @ -Acute Uncomplicated (without systemic symptoms) or Complicated (systemic symptoms)? @ -Uncomplicated Side effects of treatment? @ -None Exacerbation, Progression, or Severe Exacerbation] @ -Not applicable Poses a threat to life or bodily function? @ -No Return precautions reviewed in depth, the patient is instructed to return to the emergency department with any new, worsening, or concerning symptoms. Patient verbalized understanding. This case was discussed in detail with the attending ED physician, Dr. Medrano. Presentation, findings, and treatment plan discussed in detail as well. - Lab Data Result diagrams: 12/24/23 12:14 12/24/23 12:14 Lab Results 12/24/23 12/24/23 12/24/23 Range/Units 12:14 12:14 12:14 WBC 6.5 (3.8-10.6) k/uL RBC 4.65 (3.80-5.40) m/uL Hgb 14.2 (11.4-16.0) gm/dL Hct 43.3 (34.0-46.0) % MCV 93.2 (80.0-100.0) fL MCH 30.6 (25.0-35.0) pg MCHC 32.9 (31.0-37.0) g/dL RDW 13.4 (11.5-15.5) % Plt Count 284 (150-450) k/uL MPV 7.1 Neutrophils % 70 % Lymphocytes % 21 % Monocytes % 4 % Eosinophils % 2 % Basophils % 1 % Neutrophils # 4.6 (1.3-7.7) k/uL Lymphocytes # 1.4 (1.0-4.8) k/uL Monocytes # 0.3 (0-1.0) k/uL Eosinophils # 0.1 (0-0.7) k/uL Basophils # 0.1 (0-0.2) k/uL Sodium 139 (137-145) mmol/L Potassium 4.5 (3.5-5.1) mmol/L Chloride 112 H (98-107) mmol/L Carbon Dioxide 21 L (22-30) mmol/L Anion Gap 6 mmol/L BUN 17 (7-17) mg/dL Creatinine 0.74 (0.52-1.04) mg/dL Est GFR (CKD-EPI)AfAm >90 (>60 ml/min/1.73 sqM) Est GFR (CKD-EPI)NonAf >90 (>60 ml/min/1.73 sqM) Glucose 104 H (74-99) mg/dL Plasma Lactic Acid [place] (0.7-2.0) mmol/L Calcium 9.3 (8.4-10.2) mg/dL Magnesium 1.8 (1.6-2.3) mg/dL Total Bilirubin 0.5 (0.2-1.3) mg/dL AST 26 (14-36) U/L ALT 15 (4-34) U/L Alkaline Phosphatase 78 (38-126) U/L Total Protein 6.7 (6.3-8.2) g/dL Albumin 4.2 (3.5-5.0) g/dL Amylase 56 (30-110) U/L Lipase 152 (23-300) U/L Urine Color Light Yellow Urine Appearance Clear (Clear) Urine pH 5.5 (5.0-8.0) Ur Specific [place] 1.026 (1.001-1.035) Urine Protein Negative (Negative) Urine Glucose (UA) Negative (Negative) Urine Ketones Negative (Negative) Urine Blood Negative (Negative) Urine Nitrite Negative (Negative) Urine Bilirubin Negative (Negative) Urine Urobilinogen <2.0 (<2.0) mg/dL Ur Leukocyte Esterase Moderate H (Negative) Urine WBC 3 (0-5) /hpf Ur Squamous Epith Cells 3 (0-4) /hpf Urine Bacteria Many H (None) /hpf Urine Mucus Few H (None) /hpf Urine HCG, Qual (Not Detectd) 12/24/23 12/24/23 Range/Units 12:14 12:14 WBC (3.8-10.6) k/uL RBC (3.80-5.40) m/uL Hgb (11.4-16.0) gm/dL Hct (34.0-46.0) % MCV (80.0-100.0) fL MCH (25.0-35.0) pg MCHC (31.0-37.0) g/dL RDW (11.5-15.5) % Plt Count (150-450) k/uL MPV Neutrophils % % Lymphocytes % % Monocytes % % Eosinophils % % Basophils % % Neutrophils # (1.3-7.7) k/uL Lymphocytes # (1.0-4.8) k/uL Monocytes # (0-1.0) k/uL Eosinophils # (0-0.7) k/uL Basophils # (0-0.2) k/uL Sodium (137-145) mmol/L Potassium (3.5-5.1) mmol/L Chloride (98-107) mmol/L Carbon Dioxide (22-30) mmol/L Anion Gap mmol/L BUN (7-17) mg/dL Creatinine (0.52-1.04) mg/dL Est GFR (CKD-EPI)AfAm (>60 ml/min/1.73 sqM) Est GFR (CKD-EPI)NonAf (>60 ml/min/1.73 sqM) Glucose (74-99) mg/dL Plasma Lactic Acid [place] 0.7 (0.7-2.0) mmol/L Calcium (8.4-10.2) mg/dL Magnesium (1.6-2.3) mg/dL Total Bilirubin (0.2-1.3) mg/dL AST (14-36) U/L ALT (4-34) U/L Alkaline Phosphatase (38-126) U/L Total Protein (6.3-8.2) g/dL Albumin (3.5-5.0) g/dL Amylase (30-110) U/L Lipase (23-300) U/L Urine Color Urine Appearance (Clear) Urine pH (5.0-8.0) Ur Specific [place] (1.001-1.035) Urine Protein (Negative) Urine Glucose (UA) (Negative) Urine Ketones (Negative) Urine Blood (Negative) Urine Nitrite (Negative) Urine Bilirubin (Negative) Urine Urobilinogen (<2.0) mg/dL Ur Leukocyte Esterase (Negative) Urine WBC (0-5) /hpf Ur Squamous Epith Cells (0-4) /hpf Urine Bacteria (None) /hpf Urine Mucus (None) /hpf Urine HCG, Qual Not Detected (Not Detectd) - Radiology Data Radiology results: report reviewed, image reviewed Disposition Clinical Impression: Abdominal pain, Hemorrhagic cyst of left ovary, UTI (urinary tract infection) Disposition: HOME SELF-CARE Instructions (If sedation given, give patient instructions): Ovarian Cyst (ED), Abdominal Pain (ED) Additional Instructions: Return to the emergency department with any new, worsening, or concerning symptoms. Take the Toradol with Tylenol as needed for pain relief. If you choose to take the Toradol, do not take any other anti-inflammatories such as ibuprofen, take one or the other. Take the antibiotic as prescribed for 7 days. You can take the Zofran up to every 8 hours as needed for nausea and vomiting. You can try taking the Lomotil or use [id number] Imodium for the liquid stool. Also try applying warm compresses. Follow up with your primary care provider in 1-2 days. Prescriptions: Sulfamethox-Tmp 800-160Mg [Bactrim DS 800-160 mg] 1 tab PO Q12HR 7 Days #14 tab Ketorolac [Toradol] 10 mg PO Q6HR PRN #15 tab PRN Reason: Pain Ondansetron Odt [Zofran Odt] 4 mg PO Q8HR PRN #20 tab PRN Reason: Nausea And Vomiting Is patient prescribed a controlled substance at d/c from ED?: No Referrals: Alon Oakes MD [Primary Care Provider] - 1-2 days Time of Disposition: 15:09
[2023-12-24] MEDS: ONDANSETRON 4 MG/2 ML VIAL IVP STA ×2 (12:22→14:04)
[2023-12-24] MEDS: KETOROLAC 15 MG/ML 1 ML VIAL IVP STA (12:23)
[2023-12-24] MEDS: MORPHINE SULFATE 4 MG/ML SYRINGE IVP STA (12:25)
[2023-12-24] MEDS: SODIUM CHLORIDE 0.9% 1,000 ML IV STA (12:27)
[2023-12-24 13:12] LABS: Basophils # (A) 0.1 k/uL (0-0.2); Basophils % (A) 1 %; Eosinophils # (A) 0.1 k/uL (0-0.7); Eosinophils % (A) 2 %; HCT 43.3 % (34.0-46.0); HGB 14.2 gm/dL (11.4-16.0); Lymphocytes # (A) 1.4 k/uL (1.0-4.8); Lymphocytes % (A) 21 %; MCH 30.6 pg (25.0-35.0); MCHC 32.9 g/dL (31.0-37.0); MCV 93.2 fL (80.0-100.0); Mean Platelet Volume 7.1; Monocytes # (A) 0.3 k/uL (0-1.0); Monocytes % (A) 4 %; Neutrophils # (A) 4.6 k/uL (1.3-7.7); Neutrophils % (A) 70 %; Platelet Count 284 k/uL (150-450); RBC 4.65 m/uL (3.80-5.40); RDW 13.4 % (11.5-15.5); WBC 6.5 k/uL (3.8-10.6)
--- NOTE | 2023-12-24 13:25 | CT ---
EXAMINATION TYPE: CT abdomen pelvis w con DATE OF EXAM: 12/24/2023 COMPARISON: None HISTORY: abd pain CT DLP: 1289.1 mGycm CONTRAST: CT scan of the abdomen and pelvis is performed without Oral Contrast and with IV Contrast, patient in jected with 100 mL of Isovue 300. FINDINGS: LUNG BASES-: No visible nodule. No infiltrate. LIVER/GB: No calcified gallstones. No space occupying hepatic lesion. Biliary tree is of normal ca liber. PANCREAS: No inflammation. No distinct mass. SPLEEN: No splenic enlargement. No lesion seen. ADRENALS: No nodule. No thickening. KIDNEYS/BLADDER: No hydronephrosis. No nephrolithiasis. No distinct renal mass. Urinary bladder g rossly unremarkable. BOWEL: 1 mm appendicolith noted. The appendix is otherwise within normal limits. Normal bowel calibe r. No inflammation. GENITAL ORGANS: Left ovarian cyst measuring 2.7 cm. Right ovary is unremarkable. The uterus is of nor mal caliber. LYMPH NODES: No greater than 1cm abdominal or pelvic lymph nodes are appreciated. AORTA: No significant abnormality. OSSEOUS STRUCTURES: No significant abnormality is seen. OTHER: No significant additional abnormality is seen. IMPRESSION: 1. Left ovarian cyst measuring 2.7 cm. Right ovary is unremarkable. The uterus is of normal caliber. 2. 1 mm appendicolith noted. The appendix is otherwise within normal limits.
[2023-12-24 13:28] LABS: ALT 15 U/L (4-34); AST 26 U/L (14-36); African American GFR (CKD) >90 (>60 ml/min/1.73 sqM); Albumin 4.2 g/dL (3.5-5.0); Alkaline Phosphatase 78 U/L (38-126); Amylase 56 U/L (30-110); Anion Gap 6 mmol/L; Blood Urea Nitrogen 17 mg/dL (7-17); Calcium 9.3 mg/dL (8.4-10.2); Carbon Dioxide 21 mmol/L (22-30); Chloride 112 mmol/L (98-107); Glucose 104 mg/dL (74-99); Lipase 152 U/L (23-300); Magnesium 1.8 mg/dL (1.6-2.3); Non-African American GFR(CKD) >90 (>60 ml/min/1.73 sqM); Potassium 4.5 mmol/L (3.5-5.1); Sodium 139 mmol/L (137-145); Total Bilirubin 0.5 mg/dL (0.2-1.3); Total Protein 6.7 g/dL (6.3-8.2)
[2023-12-24 13:37] LABS: Appearance,Urine Clear (Clear); Bacteria,Urine Many /hpf; Bilirubin,Urine Negative (Negative); Blood,Urine Negative (Negative); Color,Urine Light Yellow; Glucose,Urine (UA) Negative (Negative); Ketones,Urine Negative (Negative); Leukocyte Esterase,Urine Moderate (Negative); Mucus,Urine Few /hpf; Nitrite,Urine Negative (Negative); PH, Urine 5.5 (5.0-8.0); Protein,Urine Negative (Negative); Specific Gravity,Urine 1.026 (1.001-1.035); Squamous Epithelial Cell,Urine 3 /hpf (0-4); Urobilinogen,Urine <2.0 mg/dL (<2.0); WBC,Urine 3 /hpf (0-5)
--- NOTE | 2023-12-24 15:02 | US ---
EXAMINATION TYPE: US transvaginal plus Dopplers DATE OF EXAM: 12/24/2023 COMPARISON: 11/12/2023 CLINICAL INDICATION: Female, 28 years old with history of Pelvic pain, ovarian cyst; Patient states h aving hx of ovarian cysts. Hx ligated tubes. TECHNIQUE: Transvaginal (TV). Color Doppler and spectral waveform analysis of the ovarian arteries a nd veins. Date of LMP: 11/30/2023, EXAM MEASUREMENTS: Uterus: 7.3 x 4.7 x 3.9 cm Endometrial Stripe: 0.9 cm Right Ovary: 3.1 x 2.0 x 2.0 cm Left Ovary: 3.2 x 2.4 x 2.6 cm 1. Uterus: Anteverted. The myometrium is slightly in appearance. 2. Endometrium: wnl 3. Right Ovary: follicles seen 4. Left Ovary: follicles seen. Cystic appearing lesion with internal echoes/reticulations = 1.9 x 2 .0 x 2.1 cm Spectral, color and waveform doppler imaging shows good arterial and venous flow within the ovaries ; there is no evidence for ovarian torsion. 5. Bilateral Adnexa: wnl 6. Posterior cul-de-sac: trace free fluid seen IMPRESSION: 1. Follicular change in the ovaries. No sonographic evidence for ovarian torsion. 2. An additional 2.1 cm cystic lesion with echoes/reticulations in the left ovary, possible hemorrhag ic cyst/corpus luteum. Follow-up in 6-8 weeks to assess for resolution. 3. Trace cul-de-sac free fluid likely physiologic.
[2023-12-24] MEDS: ACET/COD 300 MG/30 MG STARTER PACK 6 TAB BTL PO STA (15:25)
[2023-12-24] MEDS: DIPHENOX-ATROP STARTER PACK 8 TAB BTL PO STA (15:25)
[2023-12-24 15:32] VITALS: BP 126/65; PULSE 72
== END 2023-12-24 15:32 | disposition home or self-care (01) ==
LOC: EC 11:30
DX: N39.0 Urinary tract infection, site not specified (principal); N83.202 Unspecified ovarian cyst, left side; Z91.018 Allergy to other foods; Z88.8 Allergy status to other drugs, medicaments and biological substances; Z91.048 Other nonmedicinal substance allergy status
CPT/HCPCS: 36415; 80053; 82150; 83605; 83690; 83735; 85025; 81001; 81025; 87086; 93975; 76830; 74177; 99284; 96374; 96375 ×2; 96376; J2270; J2405; J1885; Q9967